=== PATIENT | female | born 1950 | race Hispanic/Latino ===

== ENCOUNTER 2019-05-10 09:28 | Inpatient (IN) | payer MEDICARE ==
--- NOTE | 2019-05-10 10:03 | Emergency Department Report ---
HPI - General Chief Complaint: Hypoglycemia Time Seen by Provider: 05/10/19 09:44 - HPI HPI: 69-year-old female presents to the emergency department via EMS from home with the complaint of hypoglycemia. The patient's blood sugar has been fluctuating over the past few days. Patient's , who is bedside, says that her blood sugar went down to 36 2 nights ago. EMS was called out to their home and she was given some IV glucose. Her blood sugar went up appropriately at that time so they decided they did not want transport to any emergency department. Yesterday morning the blood sugar was 87 upon waking and went up to about 140 but then was back down to about 70 prior to going to bed. The patient's says that the patient was difficult to arouse this morning and so blood sugar was rechecked and it was 36. EMS was called and the patient once again was given some glucose and the sugar went up into the high 50s but started coming back down again so they came in for further evaluation. At this time the patient is awake and alert without any significant complaints. She also has a history of hypertension and high cholesterol. The patient is on glipizide 10 mg once daily, metformin 1000 twice daily, and insulin 10 units twice daily. She has not taken any of her diabetes medications today and has not taken the insul in over the past 2 days. She follows with a nurse practitioner, Magaly Armendariz. ED Past Medical Hx - Past Medical History Previous Medical History?: Yes Hx Hypertension: Yes Hx Diabetes: Yes Additional medical history: HIGH CHOLESTEROL - Surgical History Past Surgical History?: Yes - Social History Smoking Status: Never Smoker Substance Use Type: None - Medications Home Medications: Home Medications Medication Instructions Recorded Confirmed Last Taken Type Metformin HCl [metFORMIN] 1,000 mg PO BID 05/10/19 05/10/19 2 Days Ago History ~05/08/19 Pravastatin [Pravachol] 80 mg PO QHS 05/10/19 05/10/19 1 Day Ago History ~05/09/19 Propranolol [Inderal] 20 mg PO BID 05/10/19 05/10/19 1 Day Ago History ~05/09/19 Quinapril HCl 40 mg PO QDAY 05/10/19 05/10/19 1 Day Ago History ~05/09/19 glipiZIDE [Glucotrol] 10 mg PO BID 05/10/19 05/10/19 2 Days Ago History ~05/08/19 hydroCHLOROthiazide [Hctz] 12.5 mg PO QDAY 05/10/19 05/10/19 1 Day Ago History ~05/09/19 ED Review of Systems ROS: Stated complaint: HYPOGLYCEMIA Other details as noted in HPI Comment: All other systems reviewed and negative Constitutional: denies: chills, fever Eyes: denies: eye pain, vision change ENT: denies: ear pain, throat pain Respiratory: denies: cough, shortness of breath Cardiovascular: denies: chest pain, palpitations Gastrointestinal: denies: abdominal pain, vomiting Genitourinary: denies: dysuria, discharge Musculoskeletal: denies: back pain, arthralgia Skin: denies: rash, lesions Neurological: other (unresponsive episode). denies: headache Physical Exam - Physical Exam Vital Signs: Vital Signs 05/10/19 05/10/19 09:46 09:52 Temperature 97.9 F 97.9 F Pulse Rate 74 73 Respiratory 17 18 Rate Blood Pressure 172/69 Blood Pressure 166/82 [Left] O2 Sat by Pulse 98 100 Oximetry Physical Exam: GENERAL: The patient is well-developed well-nourished. HEENT: Normocephalic. Atraumatic. Patient has moist mucous membranes. EYES: Extraocular motions are intact. NECK: Supple. Trachea is midline. CHEST/LUNGS: Clear to auscultation. There is no respiratory distress noted. HEART/CARDIOVASCULAR: Regular. There is no tachycardia. ABDOMEN: Abdomen is soft, nontender. Patient has normal bowel sounds. There is no abdominal distention. SKIN:Skin is warm and dry. . NEURO: The patient is awake, alert, and oriented. The patient is cooperative. The patient has no focal neurologic deficits. Normal speech. MUSCULOSKELETAL: There is no tenderness or deformity. There is no evidence of acute injury. ED Course Vital Signs 05/10/19 05/10/19 09:46 09:52 Temperature 97.9 F 97.9 F Pulse Rate 74 73 Respiratory 17 18 Rate Blood Pressure 172/69 Blood Pressure 166/82 [Left] O2 Sat by Pulse 98 100 Oximetry ED Medical Decision Making - Lab Data Result diagrams: 05/10/19 10:08 05/10/19 10:08 - Radiology Data Radiology results: report reviewed Bilateral renal ultrasound does not show any sonographic abnormalities. - Medical Decision Making This patient presents with a few days of some hypoglycemic episodes. Her blood sugar upon arrival here, after getting glucose from EMS, is about 140 from her serum blood draw. However the patient has acute renal failure with a GFR of about 15. I believe that the patient's sulfonylurea and the metformin are therefore not being filtered appropriately and are the reason for her recurrent hypoglycemic episodes. She has been given some IV fluid resuscitation. Bilateral renal ultrasound does not show any sonographic abnormalities. Her vital signs stable throughout her ED course thus far. A nephrology consult has been placed and the patient will be admitted to the hospital for further evaluation and treatment and was except for admission by the hospitalist, Dr. Duncan. - Differential Diagnosis hypoglycemia, malignancy, dehydration, prerenal azotemia Critical Care Time: No Critical care attestation.: If time is entered above; I have spent that time in minutes in the direct care of this critically ill patient, excluding procedure time. ED Disposition Clinical Impression: Multiple episodes of hypoglycemia, Hyperkalemia Acute renal failure Qualifiers: Acute renal failure type: unspecified Qualified Code(s): N17.9 - Acute kidney failure, unspecified UTI (urinary tract infection) Qualifiers: Urinary tract infection type: acute cystitis Hematuria presence: without hematuria Qualified Code(s): N30.00 - Acute cystitis without hematuria Hypertension Qualifiers: Hypertension type: essential hypertension Qualified Code(s): I10 - Essential (primary) hypertension Disposition: OP ADMIT IP TO THIS HOSP Is pt being admited?: Yes Condition: Serious Time of Disposition: 11:32
[2019-05-10 10:22] LABS: Basophils % (Auto) 0.3 % (0.0-1.8); Eosinophils # (Auto) 0.2 K/mm3 (0.0-0.4); Eosinophils % (Auto) 3.6 % (0.0-4.3); Hematocrit 34.9 % (30.3-42.9); Hemoglobin 12.3 gm/dl (10.1-14.3); Lymphocytes # (Auto) 1.5 K/mm3 (1.2-5.4); Lymphocytes % (Auto) 21.7 % (13.4-35.0); Mean Corpuscular HGB Conc 35 % (30-34); Mean Corpuscular Volume 88 fl (79-97); Monocytes # (Auto) 0.5 K/mm3 (0.0-0.8); Monocytes % (Auto) 6.8 % (0.0-7.3); Platelet Count 241 K/mm3 (140-440); Red Blood Count 3.97 M/mm3 (3.65-5.03); Red Cell Distribution Width 14.1 % (13.2-15.2)
[2019-05-10 10:47] LABS: Calcium 9.6 mg/dL (8.4-10.2)
[2019-05-10 10:48] LABS: Albumin 3.9 g/dL (3.9-5)
[2019-05-10] MEDS ORDERED: SODIUM CHLORIDE 0.9% 1000 ML 1,000 ML IV ONE (11:01)
[2019-05-10] MEDS ORDERED: SODIUM POLYSTYRENE 15 GM/60 ML ORAL LIQD PO ONE ×2 (11:01→17:45)
[2019-05-10 11:26] LABS: Bacteria,Urine 4+ /HPF (Negative); Bilirubin,Urine NEG (Negative); Blood,Urine SM (Negative); Color,Urine Yellow (Yellow); Mucus,Urine FEW /HPF; Protein,Urine <15 mg/dL mg/dL (Negative); Urobilinogen,Urine < 2.0 mg/dL (<2.0)
[2019-05-10] MEDS ORDERED: cefTRIAXone/NS 1 GM/50 ML 1 GM/50 ML BAG IV ONE (11:29)
--- NOTE | 2019-05-10 12:37 | Ultrasound Report ---
US renal BILAT INDICATION: Acute renal failure. COMPARISON: None . FINDINGS: Renal sonography suggests top normal renal cortical echogenicity. Grossly preserved renal c ontours. No hydronephrosis. RIGHT KIDNEY 11 x 5.7 x 5.2 cm with cortical thickness of 1.7 cm. LEFT KIDNEY estimated at 11.5 x 4.8 x 4.7 cm with cortical thickness of 1.6 cm. URINARY BLADDER appears within normal limits. IMPRESSION: No acute renal sonographic abnormality, as described. Thank you for the opportunity to participate in this patient's care. Signer Name: Ashli Petersen Signed: 05/10/2019 12:32 PM Workstation Name: [id number]
[2019-05-10] MEDS ORDERED: CALCIUM GLUCONATE 2,000 MG in SODIUM CHLORIDE 0.9% 100 ML IV ONE (22:26)
--- NOTE | 2019-05-10 22:28 | Event Note ---
Date: 05/10/19 See history and physical in the reports Hypoglycemia Acute kidney injury on CKD Type 2 diabetes
[2019-05-10] MEDS: HEPARIN 5,000 UNIT/1 ML VIAL SUB-Q SCH (23:38)
[2019-05-11 05:01] LABS: Basophils % (Auto) 0.4 % (0.0-1.8); Eosinophils # (Auto) 0.3 K/mm3 (0.0-0.4); Eosinophils % (Auto) 3.8 % (0.0-4.3); Hemoglobin 11.4 gm/dl (10.1-14.3); Lymphocytes # (Auto) 2.1 K/mm3 (1.2-5.4); Lymphocytes % (Auto) 28.9 % (13.4-35.0); Mean Corpuscular HGB Conc 36 % (30-34); Mean Corpuscular Volume 88 fl (79-97); Monocytes # (Auto) 0.7 K/mm3 (0.0-0.8); Monocytes % (Auto) 9.1 % (0.0-7.3); Platelet Count 239 K/mm3 (140-440); Red Blood Count 3.66 M/mm3 (3.65-5.03); Red Cell Distribution Width 14.3 % (13.2-15.2)
[2019-05-11 05:26] LABS: Albumin 3.8 g/dL (3.9-5); Calcium 9.4 mg/dL (8.4-10.2)
[2019-05-11] MEDS: INSULIN LISPRO 100 UNIT/ML SUB-Q SCH ×4 (09:34→23:03)
[2019-05-11] MEDS: HEPARIN 5,000 UNIT/1 ML VIAL SUB-Q SCH ×2 (09:37→23:04)
[2019-05-11] MEDS ORDERED: hydroCHLOROthiazide 12.5 MG CAP PO SCH (10:00)
[2019-05-11] MEDS ORDERED: LISINOPRIL 20 MG TAB PO SCH (10:00)
[2019-05-11] MEDS ORDERED: QUINAPRIL HCL 40 MG PO SCH (10:00)
[2019-05-11] MEDS: PROPRANOLOL 10 MG TAB PO SCH ×2 (10:09→23:05)
--- NOTE | 2019-05-11 12:39 | Consultation ---
History of Present Illness - Reason for Consult Consult date: 05/11/19 acute renal failure, chronic renal failure, hyperkalemia Requesting physician: TOMASA ANDRADE - History of Present Illness 69-year-old female presents to the emergency department via EMS from home with the complaint of hypoglycemia. The patient's blood sugar has been fluctuating over the past few days. Patient's , who is bedside, says that her blood sugar went down to 36 2 nights ago. EMS was called out to their home and she was given some IV glucose. Her blood sugar went up appropriately at that time so they decided they did not want transport to any emergency department. Yesterday morning the blood sugar was 87 upon waking and went up to about 140 but then was back down to about 70 prior to going to bed. The patient's says that the patient was difficult to arouse this morning and so blood sugar was rechecked and it was 36. EMS was called and the patient once again was given some glucose and the sugar went up into the high 50s but started coming back down again so they came in for further evaluation. At this time the patient is awake and alert without any significant complaints. She also has a history of hypertension and high cholesterol. The patient is on glipizide 10 mg once daily, metformin 1000 twice daily, and insulin 10 units twice daily. She has not taken any of her diabetes medications today and has not taken the insulin over the past 2 days. She follows with a nurse practitioner, Magaly Armendariz. - Past Medical History Previous Medical History?: Yes Hx Hypertension: Yes Hx Diabetes: Yes Additional medical history: HIGH CHOLESTEROL - Surgical History Past Surgical History?: Yes - Social History Smoking Status: Never Smoker Substance Use Type: None ROS: Stated complaint: HYPOGLYCEMIA Other details as noted in HPI Comment: All other systems reviewed and negative Constitutional: denies: chills, fever Eyes: denies: eye pain, vision change ENT: denies: ear pain, throat pain Respiratory: denies: cough, shortness of breath Cardiovascular: denies: chest pain, palpitations Gastrointestinal: denies: abdominal pain, vomiting Genitourinary: denies: dysuria, discharge Musculoskeletal: denies: back pain, arthralgia Skin: denies: rash, lesions Neurological: other (unresponsive episode). denies: headache Medications and Allergies Allergies Allergy/AdvReac Type Severity Reaction Status Date / Time Penicillins AdvReac Unknown Verified 05/10/19 13:03 Home Medications Medication Instructions Recorded Confirmed Last Taken Type Metformin HCl [metFORMIN] 1,000 mg PO BID 05/10/19 05/10/19 2 Days Ago History ~05/08/19 Pravastatin [Pravachol] 80 mg PO QHS 05/10/19 05/10/19 1 Day Ago History ~05/09/19 Propranolol [Inderal] 20 mg PO BID 05/10/19 05/10/19 1 Day Ago History ~05/09/19 Quinapril HCl 40 mg PO QDAY 05/10/19 05/10/19 1 Day Ago History ~05/09/19 glipiZIDE [Glucotrol] 10 mg PO BID 05/10/19 05/10/19 2 Days Ago History ~05/08/19 hydroCHLOROthiazide [Hctz] 12.5 mg PO QDAY 05/10/19 05/10/19 1 Day Ago History ~05/09/19 Active Meds: Active Medications Heparin Sodium (Porcine) (Heparin) 5,000 unit SUB-Q Q12HR [facility] Last Admin: 05/11/19 09:37 Dose: 5,000 unit Documented by: Hydrochlorothiazide (Hctz) 12.5 mg PO QDAY [facility] Last Admin: 05/11/19 09:32 Dose: 12.5 mg Documented by: Insulin Human Lispro (Humalog) 0 unit SUB-Q [facility]; Protocol Last Admin: 05/11/19 11:49 Dose: 2 unit Documented by: Lisinopril (Zestril) 20 mg PO QDAY [facility] Last Admin: 05/11/19 09:32 Dose: 20 mg Documented by: Propranolol HCl (Inderal) 20 mg PO BID [facility] Last Admin: 05/11/19 10:09 Dose: 20 mg Documented by: Exam - Vital Signs Vital signs: Vital Signs Pulse Resp 71 17 05/10/19 09:42 05/10/19 09:42 - Physical Exam Narrative exam: GENERAL: The patient is well-developed well-nourished. HEENT: Normocephalic. Atraumatic. Patient has moist mucous membranes. EYES: Extraocular motions are intact. NECK: Supple. Trachea is midline. CHEST/LUNGS: Clear to auscultation. There is no respiratory distress noted. HEART/CARDIOVASCULAR: Regular. There is no tachycardia. ABDOMEN: Abdomen is soft, nontender. Patient has normal bowel sounds. There is no abdominal distention. SKIN:Skin is warm and dry. . NEURO: The patient is awake, alert, and oriented. The patient is cooperative. The patient has no focal neurologic deficits. Normal speech. MUSCULOSKELETAL: There is no tenderness or deformity. There is no evidence of acute injury. Results - Lab Results 05/11/19 04:19 05/11/19 04:19 Most recent lab results Calcium 9.4 mg/dL (8.4-10.2) 05/11/19 04:19 Assessment and Plan Impression: * YU on likely ckd * UTI * hypoglycemia * volume depletion * HTN * hyperkalemia * TYpe 2 DM Plan: * cr stable, likely ckd due to HTN/DM * stop metformin, and trev inhibitor * gentle ivfs * stop diuretics * daily lytes, strict i/o * avoid nephrotoxins * k is better today * renal diet
[2019-05-11] MEDS: SODIUM CHLORIDE 0.45% 1000 ML 1,000 ML IV SCH (14:02)
--- NOTE | 2019-05-11 14:57 | History and Physical Report ---
CHIEF COMPLAINT: Low blood sugar. HISTORY OF PRESENT ILLNESS: A 69-year-old female on metformin and glipizide and decreasing kidney function, comes in for severely low blood glucose levels. The patient's is at bedside. Apparently, her blood sugar went down to 36 two nights ago. The patient was given IV glucose and the patient recovered. She did not seek any medical attention. Yesterday morning, blood pressure was 87 upon waking up, then went up back to 140 and then again back down to 170 prior to going to bed. This morning, the patient was difficult to arouse and it was 36. EMS was called and the patient was brought in. The patient has a history of hypertension and hyperlipidemia. Also, decreasing kidney function. The patient is lethargic, but improved with IV dextrose in the Emergency Room, back to near normal, but the patient has been having intermittently low blood glucose level since admission for observation status. PAST MEDICAL HISTORY: Hypertension, diabetes, hyperlipidemia, chronic kidney disease. PAST SURGICAL HISTORY: None. SOCIAL HISTORY: Does not smoke. FAMILY HISTORY: Hypertension. CURRENT MEDICATIONS: Metformin 1000 mg twice a day, pravastatin 80 mg p.o. daily, Inderal 20 mg twice a day, quinapril 40 mg p.o. daily, glipizide 10 mg p.o. b.i.d., hydrochlorothiazide 12.5 p.o. daily. REVIEW OF SYSTEMS: Significant for low blood glucose and decreased responsiveness. Otherwise, review of systems negative. PHYSICAL EXAMINATION: GENERAL: Elderly female, cooperative during examination, apparently with decreased responsiveness in the Emergency Room, now back to normal eating by herself. VITAL SIGNS: Blood pressure is 172/69, temperature is 97.9, pulse is 74, respiratory rate is 17, sats are 98%. HEENT: Unremarkable. Pupils equal and reactive. NECK: Supple, no lymphadenopathy, no thyromegaly. LUNGS: Clear to auscultation and percussion. Good air entry. CARDIOVASCULAR: S1, S2 heard. No gallop, no murmur, no rub. Apical impulse in left fifth intercostal space and midclavicular line. ABDOMEN: Soft and benign. No hepatosplenomegaly. No guarding, no rigidity. Hernial orifices are normal. EXTREMITIES: Good pedal pulses. No pedal edema. CENTRAL NERVOUS SYSTEM: Alert and oriented x 4, nonfocal exam. SKIN: Normal. LABORATORY DATA: Significant for normal CBC. Potassium is 5.6, BUN and creatinine is 48 and 3.4. The initial glucose was low 36. Later, it was 132, 106 and 221. Urine shows white cells of 17. Head CT was not done. Renal ultrasound shows no acute renal sonographic abnormality. ASSESSMENT AND PLAN: 1. Persistent hypoglycemia. The patient's metformin stopped. Also, ____ be cut down to half her usual level to 5 mg once a day. 2. Acute kidney injury. IV fluids. 3. Hypertension. Continue quinapril. Will stop the hydrochlorothiazide because of the increased creatinine. Also, continue propranolol. 4. Hyperlipidemia. Continue pravastatin. 5. Type 2 diabetes. Continue glipizide at 5 mg once a day and stop the metformin because of increased creatinine function. 6. Chronic kidney disease. Nephrology consulted. 7. Deep venous thrombosis prophylaxis, heparin 5000 q. 12. JOB# [id number] DEMI/ABHI DOBSON
[2019-05-11] MEDS ORDERED: oxyCODONE /ACETAMINOPHEN 5-325MG TAB PO PRN (22:25)
[2019-05-12] MEDS: SODIUM CHLORIDE 0.45% 1000 ML 1,000 ML IV SCH ×3 (04:32→22:01)
[2019-05-12 04:58] LABS: Basophils % (Auto) 0.4 % (0.0-1.8); Eosinophils # (Auto) 0.2 K/mm3 (0.0-0.4); Eosinophils % (Auto) 3.6 % (0.0-4.3); Hematocrit 28.4 % (30.3-42.9); Hemoglobin 10.4 gm/dl (10.1-14.3); Lymphocytes # (Auto) 2.1 K/mm3 (1.2-5.4); Lymphocytes % (Auto) 29.9 % (13.4-35.0); Mean Corpuscular HGB Conc 37 % (30-34); Mean Corpuscular Volume 86 fl (79-97); Monocytes # (Auto) 0.5 K/mm3 (0.0-0.8); Monocytes % (Auto) 7.3 % (0.0-7.3); Platelet Count 226 K/mm3 (140-440); Red Blood Count 3.29 M/mm3 (3.65-5.03)
[2019-05-12 07:05] LABS: Creatinine,Urine 37.5 mg/dL (0.1-20.0); Protein/Creatinine Ratio,Urine 0.29
[2019-05-12] MEDS: INSULIN LISPRO 100 UNIT/ML SUB-Q SCH ×4 (07:30→21:30)
[2019-05-12] MEDS: HEPARIN 5,000 UNIT/1 ML VIAL SUB-Q SCH ×2 (10:05→21:23)
[2019-05-12] MEDS: PROPRANOLOL 10 MG TAB PO SCH ×2 (10:05→21:25)
--- NOTE | 2019-05-12 10:29 | Progress Note ---
Assessment and Plan Impression: * YU on likely ckd * UTI * hypoglycemia * volume depletion * HTN * hyperkalemia * TYpe 2 DM Plan: * cr 3.7, likely ckd due to HTN/DM with uti and volume depletion * stopped metformin, and trev inhibitor * gentle ivfs, although havent been hanging * iv abx for uti, patient has not been receiving * stopped diuretics * daily lytes, strict i/o * avoid nephrotoxins * k is better today * renal diet Subjective Date of service: 05/12/19 Principal diagnosis: yu, on ?ckd Interval history: resting in bed today Objective - Exam Narrative Exam: GENERAL: The patient is well-developed well-nourished. HEENT: Normocephalic. Atraumatic. Patient has moist mucous membranes. EYES: Extraocular motions are intact. NECK: Supple. Trachea is midline. CHEST/LUNGS: Clear to auscultation. There is no respiratory distress noted. HEART/CARDIOVASCULAR: Regular. There is no tachycardia. ABDOMEN: Abdomen is soft, nontender. Patient has normal bowel sounds. There is no abdominal distention. SKIN:Skin is warm and dry. . NEURO: The patient is awake, alert, and oriented. The patient is cooperative. The patient has no focal neurologic deficits. Normal speech. MUSCULOSKELETAL: There is no tenderness or deformity. There is no evidence of acute injury. - Vital Signs Vital signs: Vital Signs - 12hr 05/11/19 05/11/19 05/12/19 23:07 23:17 05:42 Temperature 98.7 F 98.8 F Pulse Rate 67 65 Respiratory 18 18 20 Rate Blood Pressure 141/75 113/52 O2 Sat by Pulse 96 95 Oximetry - Lab 05/12/19 04:22 05/12/19 04:22 Most recent lab results Calcium 9.0 mg/dL (8.4-10.2) 05/12/19 04:22 Urine Creatinine 37.5 mg/dL (0.1-20.0) H 05/11/19 12:40 Urine Total Protein 11 mg/dL (5-11.8) 05/11/19 12:40 Medications & Allergies - Medications Allergies/Adverse Reactions: Allergies Penicillins Adverse Reaction (Verified 05/10/19 13:03) Unknown Home Medications: Home Medications Medication Instructions Recorded Confirmed Last Taken Type Metformin HCl [metFORMIN] 1,000 mg PO BID 05/10/19 05/10/19 2 Days Ago History ~05/08/19 Pravastatin [Pravachol] 80 mg PO QHS 05/10/19 05/10/19 1 Day Ago History ~05/09/19 Propranolol [Inderal] 20 mg PO BID 05/10/19 05/10/19 1 Day Ago History ~05/09/19 Quinapril HCl 40 mg PO QDAY 05/10/19 05/10/19 1 Day Ago History ~05/09/19 glipiZIDE [Glucotrol] 10 mg PO BID 05/10/19 05/10/19 2 Days Ago History ~05/08/19 hydroCHLOROthiazide [Hctz] 12.5 mg PO QDAY 05/10/19 05/10/19 1 Day Ago History ~05/09/19 Active Medications: Generic Name Dose Route Start Last Admin Trade Name Freq PRN Reason Stop Dose Admin Heparin Sodium (Porcine) 5,000 unit 05/10/19 22:30 05/12/19 10:05 Heparin SUB-Q 5,000 unit Q12HR [facility]AY Administration Sodium Chloride 1,000 mls @ 100 mls/hr 05/11/19 13:00 05/12/19 04:32 Nacl 0.45% 1000 Ml IV 100 mls/hr DIRECT SARAY Administration Levofloxacin/Dextrose 250 mg in 50 mls @ 50 mls/hr 05/12/19 11:00 Levaquin 250mg/50ml IV Q24HR [facility] Protocol Insulin Human Lispro 0 unit 05/11/19 07:30 05/12/19 07:30 Humalog SUB-Q Not Given ACHS [facility]AY Protocol Oxycodone/Acetaminophen 1 tab 05/11/19 22:25 05/11/19 23:07 Percocet 5/325 PO 1 tab Q6H PRN Administration Pain, Moderate (4-6) Propranolol HCl 20 mg 05/11/19 10:00 05/12/19 10:05 Inderal PO 20 mg BID [facility]AY Administration
--- NOTE | 2019-05-12 19:11 | Progress Note ---
Assessment and Plan - Patient Problems (1) Multiple episodes of hypoglycemia Current Visit: Yes Status: Acute Plan to address problem: Oral hypoglycemics stopped.Cont Lantus 10 units once daily in AM which she was taking at home twice a day (2) YU (acute kidney injury) Current Visit: Yes Status: Acute Plan to address problem: IV fluids for now Has underlying CKD Nephrology following. (3) UTI (urinary tract infection) Current Visit: Yes Status: Acute Qualifiers: Urinary tract infection type: acute cystitis Hematuria presence: without hematuria Qualified Code(s): N30.00 - Acute cystitis without hematuria Plan to address problem: On Levaquin (4) Hypertension Current Visit: Yes Status: Chronic Qualifiers: Hypertension type: essential hypertension Qualified Code(s): I10 - Essential (primary) hypertension Plan to address problem: Cont antihypertensives (5) Hyperkalemia Current Visit: Yes Status: Acute Plan to address problem: Resolved (6) HLD (hyperlipidemia) Current Visit: Yes Status: Chronic Qualifiers: Hyperlipidemia type: mixed hyperlipidemia Qualified Code(s): E78.2 - Mixed hyperlipidemia Plan to address problem: Cont statins (7) DVT prophylaxis Current Visit: Yes Status: Acute Plan to address problem: On Heparin and GI prophylaxis (8) Discharge planning issues Current Visit: Yes Status: Acute Plan to address problem: Maybe discharged only on Lantus if cleared by Nephrology. Subjective Date of service: 05/11/19 Principal diagnosis: yu, on ?ckd Interval history: 69-year-old female presents to the emergency department via EMS from home with the complaint of hypoglycemia. The patient's blood sugar has been fluctuating over the past few days. Patient's , who is bedside, says that her blood sugar went down to 36 2 nights ago. EMS was called out to their home and she was given some IV glucose. Her blood sugar went up appropriately at that time so they decided they did not want transport to any emergency department.Patient was having recurrrent hypoglycemic episodes --hence admission. Oral hypoglycemics nmetformin and Glyburide stopped.Patient had a creatinine of 3.7--hence hypoglycemic episodes. Doing better now. Objective - Constitutional Vitals: Vital Signs - 12hr 05/12/19 05/12/19 11:31 16:08 Temperature 98.4 F 98.2 F Pulse Rate 71 66 Respiratory 16 12 Rate Blood Pressure 121/55 161/76 O2 Sat by Pulse 95 97 Oximetry General appearance: Present: no acute distress, well-nourished - EENT Eyes: PERRL, EOM intact ENT: hearing intact, clear oral mucosa Ears: bilateral: normal - Neck Neck: supple, normal ROM - Respiratory Respiratory effort: normal Respiratory: bilateral: CTA - Breasts Breasts: normal - Cardiovascular Rhythm: regular Heart Sounds: Present: S1 & S2. Absent: gallop, rub Extremities: pulses intact, No edema, normal color, Full ROM - Gastrointestinal General gastrointestinal: Present: soft, non-tender, non-distended, normal bowel sounds - Genitourinary Female genitourinary: normal - Integumentary Integumentary: clear, warm, dry - Musculoskeletal Musculoskeletal: 1, strength equal bilaterally - Neurologic Neurologic: moves all extremities - Psychiatric Psychiatric: memory intact, appropriate mood/affect, intact judgment & insight - Labs CBC & Chem 7: 05/13/19 04:37 05/12/19 04:22 Labs: Abnormal lab results 05/11/19 05/11/19 05/12/19 Range/Units 12:40 22:54 04:22 RBC 3.29 L (3.65-5.03) M/mm3 Hct 28.4 L (30.3-42.9) % MCHC 37 H (30-34) % BUN (7-17) mg/dL Creatinine (0.7-1.2) mg/dL Glucose (65-100) mg/dL POC Glucose 238 H (70-105) Urine Creatinine 37.5 H (0.1-20.0) mg/dL 05/12/19 05/12/19 05/12/19 Range/Units 04:22 07:09 12:26 RBC (3.65-5.03) M/mm3 Hct (30.3-42.9) % MCHC (30-34) % BUN 41 H (7-17) mg/dL Creatinine 3.7 H (0.7-1.2) mg/dL Glucose 175 H (65-100) mg/dL POC Glucose 146 H 296 H (70-105) Urine Creatinine (0.1-20.0) mg/dL 05/12/19 Range/Units 17:03 RBC (3.65-5.03) M/mm3 Hct (30.3-42.9) % MCHC (30-34) % BUN (7-17) mg/dL Creatinine (0.7-1.2) mg/dL Glucose (65-100) mg/dL POC Glucose 350 H (70-105) Urine Creatinine (0.1-20.0) mg/dL
[2019-05-12] MEDS ORDERED: ONDANSETRON 4 MG/2 ML INJ IV PRN (20:40)
[2019-05-13 05:21] LABS: Basophils % (Auto) 0.3 % (0.0-1.8); Eosinophils # (Auto) 0.3 K/mm3 (0.0-0.4); Eosinophils % (Auto) 3.9 % (0.0-4.3); Hematocrit 28.7 % (30.3-42.9); Hemoglobin 10.2 gm/dl (10.1-14.3); Lymphocytes # (Auto) 1.8 K/mm3 (1.2-5.4); Lymphocytes % (Auto) 25.5 % (13.4-35.0); Mean Corpuscular HGB Conc 36 % (30-34); Mean Corpuscular Volume 87 fl (79-97); Monocytes # (Auto) 0.6 K/mm3 (0.0-0.8); Monocytes % (Auto) 8.4 % (0.0-7.3); Platelet Count 210 K/mm3 (140-440); Red Blood Count 3.28 M/mm3 (3.65-5.03)
[2019-05-13 05:45] LABS: Calcium 9.1 mg/dL (8.4-10.2)
--- NOTE | 2019-05-13 05:48 | Progress Note ---
Assessment and Plan - Patient Problems (1) Multiple episodes of hypoglycemia Current Visit: Yes Status: Acute Plan to address problem: Oral hypoglycemics stopped.Cont Lantus 10 units once daily in AM which she was taking at home twice a day (2) YU (acute kidney injury) Current Visit: Yes Status: Acute Plan to address problem: IV fluids for now Has underlying CKD Nephrology following. (3) UTI (urinary tract infection) Current Visit: Yes Status: Acute Qualifiers: Urinary tract infection type: acute cystitis Hematuria presence: without hematuria Qualified Code(s): N30.00 - Acute cystitis without hematuria Plan to address problem: On Levaquin (4) Hypertension Current Visit: Yes Status: Chronic Qualifiers: Hypertension type: essential hypertension Qualified Code(s): I10 - Essential (primary) hypertension Plan to address problem: Cont antihypertensives (5) Hyperkalemia Current Visit: Yes Status: Acute Plan to address problem: Resolved (6) HLD (hyperlipidemia) Current Visit: Yes Status: Chronic Qualifiers: Hyperlipidemia type: mixed hyperlipidemia Qualified Code(s): E78.2 - Mixed hyperlipidemia Plan to address problem: Cont statins (7) DVT prophylaxis Current Visit: Yes Status: Acute Plan to address problem: On Heparin and GI prophylaxis (8) Discharge planning issues Current Visit: Yes Status: Acute Plan to address problem: Maybe discharged only on Lantus if cleared by Nephrology. Subjective Date of service: 05/12/19 Principal diagnosis: yu, on ?ckd Interval history: 69-year-old female presents to the emergency department via EMS from home with the complaint of hypoglycemia. The patient's blood sugar has been fluctuating over the past few days. Patient's , who is bedside, says that her blood sugar went down to 36 2 nights ago. EMS was called out to their home and she was given some IV glucose. Her blood sugar went up appropriately at that time so they decided they did not want transport to any emergency department.Patient was having recurrrent hypoglycemic episodes --hence admission. Oral hypoglycemics nmetformin and Glyburide stopped.Patient had a creatinine of 3.7--hence hypoglycemic episodes. Doing better now. Objective - Constitutional Vitals: Vital Signs - 12hr 05/12/19 05/12/19 05/12/19 20:00 21:10 21:25 Temperature 98.2 F Pulse Rate 63 63 Respiratory 17 16 Rate Respiratory Rate [DENIES] Blood Pressure 162/77 162/77 O2 Sat by Pulse 98 Oximetry 05/12/19 05/13/19 22:00 04:27 Temperature 98.1 F Pulse Rate 61 Respiratory 16 Rate Respiratory 17 Rate [DENIES] Blood Pressure 154/75 O2 Sat by Pulse 97 Oximetry General appearance: Present: no acute distress, well-nourished - EENT Eyes: PERRL, EOM intact ENT: hearing intact, clear oral mucosa Ears: bilateral: normal - Neck Neck: supple, normal ROM - Respiratory Respiratory effort: normal Respiratory: bilateral: CTA - Breasts Breasts: normal - Cardiovascular Heart rate: 78 Rhythm: regular Heart Sounds: Present: S1 & S2. Absent: gallop, rub Extremities: pulses intact, No edema, normal color, Full ROM - Gastrointestinal General gastrointestinal: Present: soft, non-tender, non-distended, normal bowel sounds - Genitourinary Female genitourinary: normal - Integumentary Integumentary: clear, warm, dry - Musculoskeletal Musculoskeletal: 1, strength equal bilaterally - Neurologic Neurologic: moves all extremities - Psychiatric Psychiatric: memory intact, appropriate mood/affect, intact judgment & insight - Labs CBC & Chem 7: 05/13/19 04:37 05/13/19 04:37 Labs: Abnormal lab results 05/11/19 05/12/19 05/12/19 Range/Units 12:40 07:09 12:26 RBC (3.65-5.03) M/mm3 Hct (30.3-42.9) % MCHC (30-34) % [place] % (Auto) (0.0-7.3) % Sodium (137-145) mmol/L BUN (7-17) mg/dL Creatinine (0.7-1.2) mg/dL Glucose (65-100) mg/dL POC Glucose 146 H 296 H (70-105) Urine Creatinine 37.5 H (0.1-20.0) mg/dL 05/12/19 05/12/19 05/13/19 Range/Units 17:03 21:20 04:37 RBC 3.28 L (3.65-5.03) M/mm3 Hct 28.7 L (30.3-42.9) % MCHC 36 H (30-34) % [place] % (Auto) 8.4 H (0.0-7.3) % Sodium (137-145) mmol/L BUN (7-17) mg/dL Creatinine (0.7-1.2) mg/dL Glucose (65-100) mg/dL POC Glucose 350 H 220 H (70-105) Urine Creatinine (0.1-20.0) mg/dL 05/13/19 Range/Units 04:37 RBC (3.65-5.03) M/mm3 Hct (30.3-42.9) % MCHC (30-34) % [place] % (Auto) (0.0-7.3) % Sodium 135 L (137-145) mmol/L BUN 39 H (7-17) mg/dL Creatinine 3.8 H (0.7-1.2) mg/dL Glucose 171 H (65-100) mg/dL POC Glucose (70-105) Urine Creatinine (0.1-20.0) mg/dL
[2019-05-13] MEDS: INSULIN LISPRO 100 UNIT/ML SUB-Q SCH ×4 (09:05→21:22)
[2019-05-13] MEDS: INSULIN GLARGINE 100 UNITS/ML SUB-Q SCH (09:06)
[2019-05-13] MEDS: SODIUM CHLORIDE 0.9% 1000 ML 1,000 ML IV SCH ×3 (09:40→22:55)
[2019-05-13] MEDS: PROPRANOLOL 10 MG TAB PO SCH (09:41)
[2019-05-13] MEDS: HEPARIN 5,000 UNIT/1 ML VIAL SUB-Q SCH ×2 (09:41→21:21)
--- NOTE | 2019-05-13 14:07 | Progress Note ---
Assessment and Plan Assessment and plan: 69-year-old female presents to the emergency department via EMS from home with the complaint of hypoglycemia. The patient's blood sugar has been fluctuating over the past few days. Patient's , who is bedside, says that her blood sugar went down to 36 2 nights ago. EMS was called out to their home and she was given some IV glucose. Her blood sugar went up appropriately at that time so they decided they did not want transport to any emergency department.Patient was having recurrrent hypoglycemic episodes --hence admission. Oral hypoglycemics nmetformin and Glyburide stopped.Patient had a creatinine of 3.7--hence hypoglycemic episodes. Doing better now. (1) Multiple episodes of hypoglycemia Current Visit: Yes Status: Acute Plan to address problem: Oral hypoglycemics stopped. Cont Lantus 10 units once daily in AM which she was taking at home twice a day (2) YU (acute kidney injury) with vasomotor nephropathy Current Visit: Yes Status: Acute Plan to address problem: IV fluids for now Has underlying CKD Nephrology following. Creatinine is getting worse will monitor closely to ensure that we get to apply to before discharge. (3) UTI (urinary tract infection) Current Visit: Yes Status: Acute Qualifiers: Urinary tract infection type: acute cystitis Hematuria presence: without hematuria Qualified Code(s): N30.00 - Acute cystitis without hematuria Plan to address problem: On Levaquin (4) Hypertension Current Visit: Yes Status: Chronic Qualifiers: Hypertension type: essential hypertension Qualified Code(s): I10 - Essential (primary) hypertension Plan to address problem: Cont antihypertensives (5) Hyperkalemia Current Visit: Yes Status: Acute Plan to address problem: Resolved (6) HLD (hyperlipidemia) Current Visit: Yes Status: Chronic Qualifiers: Hyperlipidemia type: mixed hyperlipidemia Qualified Code(s): E78.2 - Mixed hyperlipidemia Plan to address problem: Cont statins (7) DVT prophylaxis Current Visit: Yes Status: Acute Plan to address problem: On Heparin and GI prophylaxis (8) Acute Metabolism Encephalopathy secondary Hypoglycemia now resolved Now resolved History Interval history: patient seen and examined, resting comfortable, tolerating PO intake Hospitalist Physical - Physical exam Narrative exam: General appearance: Present: no acute distress, well-nourished, Resting comfortable but concerned about renal functions - EENT Eyes: PERRL, EOM intact ENT: hearing intact, clear oral mucosa Ears: bilateral: normal - Neck Neck: supple, normal ROM - Respiratory Respiratory effort: normal Respiratory: bilateral: CTA - Breasts Breasts: normal - Cardiovascular Heart rate: 78 Rhythm: regular Heart Sounds: Present: S1 & S2. Absent: gallop, rub Extremities: pulses intact, No edema, normal color, Full ROM - Gastrointestinal General gastrointestinal: Present: soft, non-tender, non-distended, normal bowel sounds - Genitourinary Female genitourinary: normal - Integumentary Integumentary: clear, warm, dry - Musculoskeletal Musculoskeletal: 1, strength equal bilaterally - Neurologic Neurologic: moves all extremities - Psychiatric Psychiatric: memory intact, appropriate mood/affect, intact judgment & insight - Constitutional Vitals: Temp Pulse Resp BP Pulse Ox 98.1 F 63 16 157/73 97 05/13/19 04:27 05/13/19 09:41 05/13/19 04:27 05/13/19 09:41 05/13/19 04:27 General appearance: Present: no acute distress, well-nourished Results - Labs CBC & Chem 7: 05/14/19 06:43 05/14/19 06:43 Labs: Laboratory Last Values WBC 7.2 K/mm3 (4.5-11.0) 05/13/19 04:37 RBC 3.28 M/mm3 (3.65-5.03) L 05/13/19 04:37 Hgb 10.2 gm/dl (10.1-14.3) 05/13/19 04:37 Hct 28.7 % (30.3-42.9) L 05/13/19 04:37 MCV 87 fl (79-97) 05/13/19 04:37 MCH 31 pg (28-32) 05/13/19 04:37 MCHC 36 % (30-34) H 05/13/19 04:37 RDW 14.0 % (13.2-15.2) 05/13/19 04:37 Plt Count 210 K/mm3 (140-440) 05/13/19 04:37 Lymph % (Auto) 25.5 % (13.4-35.0) 05/13/19 04:37 [place] % (Auto) 8.4 % (0.0-7.3) H 05/13/19 04:37 Eos % (Auto) 3.9 % (0.0-4.3) 05/13/19 04:37 Baso % (Auto) 0.3 % (0.0-1.8) 05/13/19 04:37 Lymph # 1.8 K/mm3 (1.2-5.4) 05/13/19 04:37 [place] # 0.6 K/mm3 (0.0-0.8) 05/13/19 04:37 Eos # 0.3 K/mm3 (0.0-0.4) 05/13/19 04:37 Baso # 0.0 K/mm3 (0.0-0.1) 05/13/19 04:37 Seg Neutrophils % 61.9 % (40.0-70.0) 05/13/19 04:37 Seg Neutrophils # 4.5 K/mm3 (1.8-7.7) 05/13/19 04:37 VBG pH 7.307 (7.320-7.420) L 05/10/19 10:08 Sodium 135 mmol/L (137-145) L 05/13/19 04:37 Potassium 3.9 mmol/L (3.6-5.0) 05/13/19 04:37 Chloride 99.1 mmol/L (98-107) 05/13/19 04:37 Carbon Dioxide 22 mmol/L (22-30) 05/13/19 04:37 Anion Gap 18 mmol/L 05/13/19 04:37 BUN 39 mg/dL (7-17) H 05/13/19 04:37 Creatinine 3.8 mg/dL (0.7-1.2) H 05/13/19 04:37 Estimated GFR 12 ml/min 05/13/19 04:37 BUN/Creatinine Ratio 10 % 05/13/19 04:37 Glucose 171 mg/dL (65-100) H 05/13/19 04:37 POC Glucose 248 (70-105) H 05/13/19 11:54 Calcium 9.1 mg/dL (8.4-10.2) 05/13/19 04:37 Total Bilirubin 0.20 mg/dL (0.1-1.2) 05/11/19 04:19 AST 12 units/L (5-40) 05/11/19 04:19 ALT 5 units/L (7-56) L 05/11/19 04:19 Alkaline Phosphatase 60 units/L (35-129) 05/11/19 04:19 Total Protein 6.7 g/dL (6.3-8.2) 05/11/19 04:19 Albumin 3.8 g/dL (3.9-5) L 05/11/19 04:19 Albumin/Globulin Ratio 1.3 % 05/11/19 04:19 TSH 1.670 mlU/mL (0.270-4.200) 05/10/19 10:08 Urine Color Yellow (Yellow) 05/10/19 Unknown Urine Turbidity Cloudy (Clear) 05/10/19 Unknown Urine pH 5.0 (5.0-7.0) 05/10/19 Unknown Ur Specific [place] 1.008 (1.003-1.030) 05/10/19 Unknown Urine Protein <15 mg/dl mg/dL (Negative) 05/10/19 Unknown Urine Glucose (UA) Neg mg/dL (Negative) 05/10/19 Unknown Urine Ketones Neg mg/dL (Negative) 05/10/19 Unknown Urine Blood Sm (Negative) 05/10/19 Unknown Urine Nitrite Neg (Negative) 05/10/19 Unknown Urine Bilirubin Neg (Negative) 05/10/19 Unknown Urine Urobilinogen < 2.0 mg/dL (<2.0) 05/10/19 Unknown Ur Leukocyte Esterase Mod (Negative) 05/10/19 Unknown Urine WBC (Auto) 17.0 /HPF (0.0-6.0) H 05/10/19 Unknown Urine RBC (Auto) 8.0 /HPF (0.0-6.0) 05/10/19 Unknown U Epithel Cells (Auto) 27.0 /HPF (0-13.0) H 05/10/19 Unknown Urine Bacteria (Auto) 4+ /HPF (Negative) 05/10/19 Unknown Urine Mucus Few /HPF 05/10/19 Unknown Urine Eosinophils Rare (None Seen) 05/13/19 00:40 Urine Creatinine 37.5 mg/dL (0.1-20.0) H 05/11/19 12:40 Protein/Creatinin Ratio 0.29 05/11/19 12:40 Urine Total Protein 11 mg/dL (5-11.8) 05/11/19 12:40 Hep Bs Antigen Non-reactive (Negative) 05/11/19 15:33 Hepatitis C Antibody Non-reactive (NonReactive) 05/11/19 15:33 Active Medications - Current Medications Current Medications: Generic Name Dose Route Start Last Admin Trade Name Freq PRN Reason Stop Dose Admin Heparin Sodium (Porcine) 5,000 unit 05/10/19 22:30 05/13/19 09:41 Heparin SUB-Q 5,000 unit Q12HR SARAY Administration Levofloxacin/Dextrose 250 mg in 50 mls @ 50 mls/hr 05/12/19 11:00 05/12/19 11:00 Levaquin 250mg/50ml IV 50 mls/hr Q48HR SARAY Administration Protocol Sodium Chloride 1,000 mls @ 150 mls/hr 05/13/19 08:00 05/13/19 09:40 Nacl 0.9% 1000 Ml IV 150 mls/hr DIRECT SARAY Administration Insulin Glargine 10 units 05/13/19 08:00 05/13/19 09:06 Lantus SUB-Q 10 units QAM@0800 SARAY Administration Insulin Human Lispro 0 unit 05/11/19 07:30 05/13/19 13:02 Humalog SUB-Q 2 unit ACHS SARAY Administration Protocol Ondansetron HCl 4 mg 05/12/19 20:40 05/12/19 21:22 Zofran IV 4 mg Q4H PRN Administration Nausea And Vomiting Oxycodone/Acetaminophen 1 tab 05/11/19 22:25 05/11/19 23:07 Percocet 5/325 PO 1 tab Q6H PRN Administration Pain, Moderate (4-6) Propranolol HCl 20 mg 05/11/19 10:00 05/13/19 09:41 Inderal PO 20 mg BID SARAY Administration
--- NOTE | 2019-05-13 17:46 | Progress Note ---
Assessment and Plan - Patient Problems (1) YU (acute kidney injury) Current Visit: Yes Status: Acute Plan to address problem: acute kidney injury worsening baseline creatinine unknown I reviewed renal US right kidney 11x 5.7cm left kidney 11.5c x 4.8cm reviewed UA negative protein change fluids to normal saline avoid nephrotoxins (2) Multiple episodes of hypoglycemia Current Visit: Yes Status: Acute Plan to address problem: Hypoglycemia monitor glucose continue adjusting medications d/c hypoglycemia inducing meds. (3) Hypertension Current Visit: Yes Status: Chronic Qualifiers: Hypertension type: essential hypertension Qualified Code(s): I10 - Essential (primary) hypertension Plan to address problem: HTN: controlled continue curent medications. (4) Anemia Current Visit: Yes Status: Acute Plan to address problem: mild anemia Hb: 10g/dl monitor CBC. Subjective Principal diagnosis: yu, on ?ckd Interval history: 69 year old with medical history of DM admitte with hypoglycemia on metformin and ACEI Patient with worsening renal function. denies any shortness of breath , denies any fever. Objective - Vital Signs Vital signs: Vital Signs - 12hr 05/13/19 09:41 Pulse Rate 63 Blood Pressure 157/73 - General Appearance General appearance: well-developed, well-nourished EENT: ATNC, PERRL Neck: no JVD Respiratory: Present: Clear to Ascultation Cardiology: regular, S1S2 Gastrointestinal: normal, normoactive bowel sounds Integumentary: no rash Neurologic: alert and oriented x3, CN 3-12 intact Psychiatric: mood/affect appropriate, cooperative - Lab 05/13/19 04:37 05/13/19 04:37 Most recent lab results Calcium 9.1 mg/dL (8.4-10.2) 05/13/19 04:37 Urine Creatinine 37.5 mg/dL (0.1-20.0) H 05/11/19 12:40 Urine Total Protein 11 mg/dL (5-11.8) 05/11/19 12:40 Medications & Allergies - Medications Allergies/Adverse Reactions: Allergies Penicillins Adverse Reaction (Verified 05/10/19 13:03) Unknown Home Medications: Home Medications Medication Instructions Recorded Confirmed Last Taken Type Metformin HCl [metFORMIN] 1,000 mg PO BID 05/10/19 05/10/19 2 Days Ago History ~05/08/19 Pravastatin [Pravachol] 80 mg PO QHS 05/10/19 05/10/19 1 Day Ago History ~05/09/19 Propranolol [Inderal] 20 mg PO BID 05/10/19 05/10/19 1 Day Ago History ~05/09/19 Quinapril HCl 40 mg PO QDAY 05/10/19 05/10/19 1 Day Ago History ~05/09/19 glipiZIDE [Glucotrol] 10 mg PO BID 05/10/19 05/10/19 2 Days Ago History ~05/08/19 hydroCHLOROthiazide [Hctz] 12.5 mg PO QDAY 05/10/19 05/10/19 1 Day Ago History ~05/09/19 Active Medications: Generic Name Dose Route Start Last Admin Trade Name Freq PRN Reason Stop Dose Admin Heparin Sodium (Porcine) 5,000 unit 05/10/19 22:30 05/13/19 09:41 Heparin SUB-Q 5,000 unit Q12HR SARAY Administration Levofloxacin/Dextrose 250 mg in 50 mls @ 50 mls/hr 05/12/19 11:00 05/12/19 11:00 Levaquin 250mg/50ml IV 50 mls/hr Q48HR SARAY Administration Protocol Sodium Chloride 1,000 mls @ 150 mls/hr 05/13/19 08:00 05/13/19 16:21 Nacl 0.9% 1000 Ml IV 150 mls/hr DIRECT SARAY Administration Insulin Glargine 10 units 05/13/19 08:00 05/13/19 09:06 Lantus SUB-Q 10 units QAM@0800 SARAY Administration Insulin Human Lispro 0 unit 05/11/19 07:30 05/13/19 13:02 Humalog SUB-Q 2 unit ACHS SARAY Administration Protocol Ondansetron HCl 4 mg 05/12/19 20:40 05/12/19 21:22 Zofran IV 4 mg Q4H PRN Administration Nausea And Vomiting Oxycodone/Acetaminophen 1 tab 05/11/19 22:25 05/11/19 23:07 Percocet 5/325 PO 1 tab Q6H PRN Administration Pain, Moderate (4-6) Propranolol HCl 20 mg 05/11/19 10:00 05/13/19 09:41 Inderal PO 20 mg BID SARAY Administration
[2019-05-14] MEDS: PROPRANOLOL 10 MG TAB PO SCH ×3 (01:07→23:01)
[2019-05-14] MEDS: SODIUM CHLORIDE 0.9% 1000 ML 1,000 ML IV SCH (05:49)
[2019-05-14 07:09] LABS: Basophils % (Auto) 0.3 % (0.0-1.8); Eosinophils # (Auto) 0.2 K/mm3 (0.0-0.4); Eosinophils % (Auto) 3.6 % (0.0-4.3); Hematocrit 28.3 % (30.3-42.9); Lymphocytes # (Auto) 1.5 K/mm3 (1.2-5.4); Lymphocytes % (Auto) 22.9 % (13.4-35.0); Mean Corpuscular HGB Conc 35 % (30-34); Mean Corpuscular Volume 87 fl (79-97); Monocytes # (Auto) 0.5 K/mm3 (0.0-0.8); Monocytes % (Auto) 7.9 % (0.0-7.3); Platelet Count 218 K/mm3 (140-440); Red Blood Count 3.27 M/mm3 (3.65-5.03); Red Cell Distribution Width 13.8 % (13.2-15.2)
[2019-05-14 07:24] LABS: Calcium 8.6 mg/dL (8.4-10.2)
[2019-05-14] MEDS: INSULIN LISPRO 100 UNIT/ML SUB-Q SCH ×4 (10:14→23:09)
[2019-05-14] MEDS: INSULIN GLARGINE 100 UNITS/ML SUB-Q SCH (10:17)
[2019-05-14] MEDS: HEPARIN 5,000 UNIT/1 ML VIAL SUB-Q SCH ×2 (10:17→23:10)
[2019-05-14] MEDS: SODIUM BICARBONATE 75 MEQ in SODIUM CHLORIDE 0.45% 1000 ML 1,000 ML IV SCH ×2 (10:18→18:57)
[2019-05-14 15:00] LABS: Calcium 8.8 mg/dL (8.4-10.2)
--- NOTE | 2019-05-14 15:33 | Progress Note ---
Assessment and Plan Assessment and plan: 69-year-old female presents to the emergency department via EMS from home with the complaint of hypoglycemia. The patient's blood sugar has been fluctuating over the past few days. Patient's , who is bedside, says that her blood sugar went down to 36 2 nights ago. EMS was called out to their home and she was given some IV glucose. Her blood sugar went up appropriately at that time so they decided they did not want transport to any emergency department.Patient was having recurrrent hypoglycemic episodes --hence admission. Oral hypoglycemics nmetformin and Glyburide stopped.Patient had a creatinine of 3.7--hence hypoglycemic episodes. Doing better now. (1) Multiple episodes of hypoglycemia Current Visit: Yes Status: Acute Plan to address problem: Oral hypoglycemics stopped. Cont Lantus 10 units once daily in AM which she was taking at home twice a day (2) YU (acute kidney injury) with vasomotor nephropathy Current Visit: Yes Status: Acute Plan to address problem: IV fluids for now Has underlying CKD baseline renal function PER PCP office in March was 1.3 Nephrology following. Creatinine is getting worse will monitor closely to ensure that we get to apply to before discharge. (3) UTI (urinary tract infection) Current Visit: Yes Status: Acute Qualifiers: Urinary tract infection type: acute cystitis Hematuria presence: without hematuria Qualified Code(s): N30.00 - Acute cystitis without hematuria Plan to address problem: On Levaquin (4) Hypertension Current Visit: Yes Status: Chronic Qualifiers: Hypertension type: essential hypertension Qualified Code(s): I10 - Essential (primary) hypertension Plan to address problem: Cont antihypertensives (5) Hyperkalemia Current Visit: Yes Status: Acute Plan to address problem: Resolved (6) HLD (hyperlipidemia) Current Visit: Yes Status: Chronic Qualifiers: Hyperlipidemia type: mixed hyperlipidemia Qualified Code(s): E78.2 - Mixed hyperlipidemia Plan to address problem: Cont statins (7) DVT prophylaxis Current Visit: Yes Status: Acute Plan to address problem: On Heparin and GI prophylaxis (8) Acute Metabolism Encephalopathy secondary Hypoglycemia now resolved Now resolved History Interval history: patient seen and examined, resting comfortable, tolerating PO intake, ambulation Hospitalist Physical - Physical exam Narrative exam: General appearance: Present: no acute distress, well-nourished, Resting comfortable - EENT Eyes: PERRL, EOM intact ENT: hearing intact, clear oral mucosa Ears: bilateral: normal - Neck Neck: supple, normal ROM - Respiratory Respiratory effort: normal Respiratory: bilateral: CTA - Breasts Breasts: normal - Cardiovascular Heart rate: 78 Rhythm: regular Heart Sounds: Present: S1 & S2. Absent: gallop, rub Extremities: pulses intact, No edema, normal color, Full ROM - Gastrointestinal General gastrointestinal: Present: soft, non-tender, non-distended, normal bowel sounds - Genitourinary Female genitourinary: normal - Integumentary Integumentary: clear, warm, dry - Musculoskeletal Musculoskeletal: 1, strength equal bilaterally - Neurologic Neurologic: moves all extremities - Psychiatric Psychiatric: memory intact, appropriate mood/affect, intact judgment & insight - Constitutional Vitals: Temp Pulse Resp BP Pulse Ox 98.5 F 61 16 142/62 96 05/14/19 04:57 05/14/19 04:57 05/14/19 04:57 05/14/19 04:57 05/14/19 04:57 General appearance: Present: no acute distress, well-nourished Results - Labs CBC & Chem 7: 05/15/19 04:54 05/15/19 04:54 Labs: Laboratory Last Values WBC 6.7 K/mm3 (4.5-11.0) 05/14/19 06:43 RBC 3.27 M/mm3 (3.65-5.03) L 05/14/19 06:43 Hgb 10.0 gm/dl (10.1-14.3) L 05/14/19 06:43 Hct 28.3 % (30.3-42.9) L 05/14/19 06:43 MCV 87 fl (79-97) 05/14/19 06:43 MCH 31 pg (28-32) 05/14/19 06:43 MCHC 35 % (30-34) H 05/14/19 06:43 RDW 13.8 % (13.2-15.2) 05/14/19 06:43 Plt Count 218 K/mm3 (140-440) 05/14/19 06:43 Lymph % (Auto) 22.9 % (13.4-35.0) 05/14/19 06:43 [place] % (Auto) 7.9 % (0.0-7.3) H 05/14/19 06:43 Eos % (Auto) 3.6 % (0.0-4.3) 05/14/19 06:43 Baso % (Auto) 0.3 % (0.0-1.8) 05/14/19 06:43 Lymph # 1.5 K/mm3 (1.2-5.4) 05/14/19 06:43 [place] # 0.5 K/mm3 (0.0-0.8) 05/14/19 06:43 Eos # 0.2 K/mm3 (0.0-0.4) 05/14/19 06:43 Baso # 0.0 K/mm3 (0.0-0.1) 05/14/19 06:43 Seg Neutrophils % 65.3 % (40.0-70.0) 05/14/19 06:43 Seg Neutrophils # 4.3 K/mm3 (1.8-7.7) 05/14/19 06:43 VBG pH 7.307 (7.320-7.420) L 05/10/19 10:08 Sodium 138 mmol/L (137-145) 05/14/19 13:36 Potassium 3.8 mmol/L (3.6-5.0) 05/14/19 13:36 Chloride 104.0 mmol/L (98-107) 05/14/19 13:36 Carbon Dioxide 18 mmol/L (22-30) L 05/14/19 13:36 Anion Gap 20 mmol/L 05/14/19 13:36 BUN 33 mg/dL (7-17) H 05/14/19 13:36 Creatinine 3.6 mg/dL (0.7-1.2) H 05/14/19 13:36 Estimated GFR 13 ml/min 05/14/19 13:36 BUN/Creatinine Ratio 9 % 05/14/19 13:36 Glucose 225 mg/dL (65-100) H 05/14/19 13:36 POC Glucose 170 (70-105) H 05/13/19 21:25 Calcium 8.8 mg/dL (8.4-10.2) 05/14/19 13:36 Total Bilirubin 0.20 mg/dL (0.1-1.2) 05/11/19 04:19 AST 12 units/L (5-40) 05/11/19 04:19 ALT 5 units/L (7-56) L 05/11/19 04:19 Alkaline Phosphatase 60 units/L (35-129) 05/11/19 04:19 Total Protein 6.7 g/dL (6.3-8.2) 05/11/19 04:19 Albumin 3.8 g/dL (3.9-5) L 05/11/19 04:19 Albumin/Globulin Ratio 1.3 % 05/11/19 04:19 TSH 1.670 mlU/mL (0.270-4.200) 05/10/19 10:08 Urine Color Yellow (Yellow) 05/10/19 Unknown Urine Turbidity Cloudy (Clear) 05/10/19 Unknown Urine pH 5.0 (5.0-7.0) 05/10/19 Unknown Ur Specific [place] 1.008 (1.003-1.030) 05/10/19 Unknown Urine Protein <15 mg/dl mg/dL (Negative) 05/10/19 Unknown Urine Glucose (UA) Neg mg/dL (Negative) 05/10/19 Unknown Urine Ketones Neg mg/dL (Negative) 05/10/19 Unknown Urine Blood Sm (Negative) 05/10/19 Unknown Urine Nitrite Neg (Negative) 05/10/19 Unknown Urine Bilirubin Neg (Negative) 05/10/19 Unknown Urine Urobilinogen < 2.0 mg/dL (<2.0) 05/10/19 Unknown Ur Leukocyte Esterase Mod (Negative) 05/10/19 Unknown Urine WBC (Auto) 17.0 /HPF (0.0-6.0) H 05/10/19 Unknown Urine RBC (Auto) 8.0 /HPF (0.0-6.0) 05/10/19 Unknown U Epithel Cells (Auto) 27.0 /HPF (0-13.0) H 05/10/19 Unknown Urine Bacteria (Auto) 4+ /HPF (Negative) 05/10/19 Unknown Urine Mucus Few /HPF 05/10/19 Unknown Urine Eosinophils Rare (None Seen) 05/13/19 00:40 Urine Creatinine 37.5 mg/dL (0.1-20.0) H 05/11/19 12:40 Protein/Creatinin Ratio 0.29 05/11/19 12:40 Urine Total Protein 11 mg/dL (5-11.8) 05/11/19 12:40 Hep Bs Antigen Non-reactive (Negative) 05/11/19 15:33 Hepatitis C Antibody Non-reactive (NonReactive) 05/11/19 15:33 Active Medications - Current Medications Current Medications: Generic Name Dose Route Start Last Admin Trade Name Freq PRN Reason Stop Dose Admin Heparin Sodium (Porcine) 5,000 unit 05/10/19 22:30 05/14/19 10:17 Heparin SUB-Q 5,000 unit Q12HR SARAY Administration Levofloxacin/Dextrose 250 mg in 50 mls @ 50 mls/hr 05/12/19 11:00 05/14/19 10:17 Levaquin 250mg/50ml IV 50 mls/hr Q48HR SARAY Administration Protocol Sodium Bicarbonate 75 meq/ 1,075 mls @ 150 mls/hr 05/14/19 10:00 05/14/19 10:18 Sodium Chloride IV 150 mls/hr DIRECT SARAY Administration Insulin Glargine 10 units 05/13/19 08:00 05/14/19 10:17 Lantus SUB-Q 10 units QAM@0800 SARAY Administration Insulin Human Lispro 0 unit 05/11/19 07:30 05/14/19 12:34 Humalog SUB-Q 3 unit ACHS SARAY Administration Protocol Ondansetron HCl 4 mg 05/12/19 20:40 05/12/19 21:22 Zofran IV 4 mg Q4H PRN Administration Nausea And Vomiting Oxycodone/Acetaminophen 1 tab 05/11/19 22:25 05/11/19 23:07 Percocet 5/325 PO 1 tab Q6H PRN Administration Pain, Moderate (4-6) Propranolol HCl 20 mg 05/11/19 10:00 05/14/19 10:16 Inderal PO 20 mg BID SARAY Administration
--- NOTE | 2019-05-14 16:44 | Progress Note ---
Assessment and Plan - Patient Problems (1) YU (acute kidney injury) Current Visit: Yes Status: Acute Plan to address problem: acute kidney injury baseline creatinine 1.March from patient's primary care office Current creatinine is 3.6 mg/DL I attempted to call the patient's family care clinic to find the patient's baseline kidney function I reviewed renal US right kidney 11x 5.7cm left kidney 11.5cm x 4.8cm reviewed UA negative protein change fluids to normal saline avoid nephrotoxins (2) Multiple episodes of hypoglycemia Current Visit: Yes Status: Acute Plan to address problem: Hypoglycemia monitor glucose continue adjusting medications d/c hypoglycemia inducing meds. (3) Hypertension Current Visit: Yes Status: Chronic Qualifiers: Hypertension type: essential hypertension Qualified Code(s): I10 - E ssential (primary) hypertension Plan to address problem: HTN: controlled continue curent medications. (4) Anemia Current Visit: Yes Status: Acute Plan to address problem: mild anemia Hb: 10g/dl monitor CBC. Subjective Principal diagnosis: yu, on ?ckd Interval history: 69 year old with medical history of DM admitte with hypoglycemia on metformin and ACEI Patient seen today denies any shortness of breath , denies any fever. Reports good urine output Objective - Vital Signs Vital signs: Vital Signs - 12hr 05/14/19 04:57 Temperature 98.5 F Pulse Rate 61 Respiratory 16 Rate Blood Pressure 142/62 O2 Sat by Pulse 96 Oximetry - General Appearance General appearance: well-developed, well-nourished EENT: ATNC, PERRL Neck: no JVD Respiratory: Present: Clear to Ascultation Cardiology: regular, S1S2 Gastrointestinal: normal, normoactive bowel sounds Integumentary: no rash Neurologic: no focal deficit, CN 3-12 intact Psychiatric: mood/affect appropriate - Lab 05/14/19 06:43 05/14/19 13:36 Most recent lab results Calcium 8.8 mg/dL (8.4-10.2) 05/14/19 13:36 Urine Creatinine 37.5 mg/dL (0.1-20.0) H 05/11/19 12:40 Urine Total Protein 11 mg/dL (5-11.8) 05/11/19 12:40 - Imaging Chest x-ray: image reviewed (reviewed chest x-ray without pulmonary edema) Medications & Allergies - Medications Allergies/Adverse Reactions: Allergies Penicillins Adverse Reaction (Verified 05/10/19 13:03) Unknown Home Medications: Home Medications Medication Instructions Recorded Confirmed Last Taken Type Metformin HCl [metFORMIN] 1,000 mg PO BID 05/10/19 05/10/19 2 Days Ago History ~05/08/19 Pravastatin [Pravachol] 80 mg PO QHS 05/10/19 05/10/19 1 Day Ago History ~05/09/19 Propranolol [Inderal] 20 mg PO BID 05/10/19 05/10/19 1 Day Ago History ~05/09/19 Quinapril HCl 40 mg PO QDAY 05/10/19 05/10/19 1 Day Ago History ~05/09/19 glipiZIDE [Glucotrol] 10 mg PO BID 05/10/19 05/10/19 2 Days Ago History ~05/08/19 hydroCHLOROthiazide [Hctz] 12.5 mg PO QDAY 05/10/19 05/10/19 1 Day Ago History ~05/09/19 Active Medications: Generic Name Dose Route Start Last Admin Trade Name Freq PRN Reason Stop Dose Admin Heparin Sodium (Porcine) 5,000 unit 05/10/19 22:30 05/14/19 10:17 Heparin SUB-Q 5,000 unit Q12HR SARAY Administration Levofloxacin/Dextrose 250 mg in 50 mls @ 50 mls/hr 05/12/19 11:00 05/14/19 10:17 Levaquin 250mg/50ml IV 50 mls/hr Q48HR SARAY Administration Protocol Sodium Bicarbonate 75 meq/ 1,075 mls @ 150 mls/hr 05/14/19 10:00 05/14/19 1 0:18 Sodium Chloride IV 150 mls/hr DIRECT SARAY Administration Insulin Glargine 10 units 05/13/19 08:00 05/14/19 10:17 Lantus SUB-Q 10 units QAM@0800 SARAY Administration Insulin Human Lispro 0 unit 05/11/19 07:30 05/14/19 12:34 Humalog SUB-Q 3 unit ACHS SARAY Administration Protocol Ondansetron HCl 4 mg 05/12/19 20:40 05/12/19 21:22 Zofran IV 4 mg Q4H PRN Administration Nausea And Vomiting Oxycodone/Acetaminophen 1 tab 05/11/19 22:25 02/01/20 23:07 Percocet 5/325 PO 1 tab Q6H PRN Administration Pain, Moderate (4-6) Propranolol HCl 20 mg 05/11/19 10:00 05/14/19 10:16 Inderal PO 20 mg BID SARAY Administration
[2019-05-15] MEDS: SODIUM BICARBONATE 75 MEQ in SODIUM CHLORIDE 0.45% 1000 ML 1,000 ML IV SCH ×2 (01:07→09:54)
[2019-05-15 05:39] LABS: Basophils % (Auto) 0.3 % (0.0-1.8); Eosinophils # (Auto) 0.3 K/mm3 (0.0-0.4); Eosinophils % (Auto) 4.5 % (0.0-4.3); Hematocrit 29.5 % (30.3-42.9); Hemoglobin 10.5 gm/dl (10.1-14.3); Lymphocytes # (Auto) 1.5 K/mm3 (1.2-5.4); Lymphocytes % (Auto) 23.1 % (13.4-35.0); Mean Corpuscular HGB Conc 36 % (30-34); Mean Corpuscular Volume 87 fl (79-97); Monocytes # (Auto) 0.5 K/mm3 (0.0-0.8); Monocytes % (Auto) 8.4 % (0.0-7.3); Platelet Count 225 K/mm3 (140-440); Red Cell Distribution Width 14.2 % (13.2-15.2)
[2019-05-15 06:04] LABS: Calcium 8.9 mg/dL (8.4-10.2)
[2019-05-15] MEDS: INSULIN LISPRO 100 UNIT/ML SUB-Q SCH ×4 (09:56→22:27)
[2019-05-15] MEDS: hydrALAZINE 25 MG TAB PO SCH ×3 (09:56→22:06)
[2019-05-15] MEDS: INSULIN GLARGINE 100 UNITS/ML SUB-Q SCH (09:56)
[2019-05-15] MEDS: HEPARIN 5,000 UNIT/1 ML VIAL SUB-Q SCH ×2 (09:56→22:16)
[2019-05-15] MEDS: amLODIPine 10 MG TAB PO SCH (09:56)
[2019-05-15] MEDS: PROPRANOLOL 10 MG TAB PO SCH ×2 (09:56→22:06)
--- NOTE | 2019-05-15 13:41 | Progress Note ---
Assessment and Plan Assessment and plan: 69-year-old female presents to the emergency department via EMS from home with the complaint of hypoglycemia. The patient's blood sugar has been fluctuating over the past few days. Patient's , who is bedside, says that her blood sugar went down to 36 2 nights ago. EMS was called out to their home and she was given some IV glucose. Her blood sugar went up appropriately at that time so they decided they did not want transport to any emergency department.Patient was having recurrrent hypoglycemic episodes --hence admission. Oral hypoglycemics metformin and Glyburide stopped. Patient had a creatinine of 3.7--hence hypoglycemic episodes. Doing better now. * Renal function is still guarded, creatinine baseline in March just a few weeks ago was 1.3 patient was on metformin and also on lisinopril * On discussion with nephrology would like to see him much improved turnaround p rior to discharging the patient * She is clinically stable will give additional fluids today. (1) Multiple episodes of hypoglycemia Current Visit: Yes Status: Acute Plan to address problem: Oral hypoglycemics stopped. Cont Lantus 10 units once daily in AM which she was taking at home twice a day (2) YU (acute kidney injury) with vasomotor nephropathy Current Visit: Yes Status: Acute Plan to address problem: IV fluids for now Has underlying CKD baseline renal function PER PCP office in March was 1.3 Nephrology following. Creatinine is getting worse will monitor closely to ensure that we get to apply to before discharge. (3) UTI (urinary tract infection) Current Visit: Yes Status: Acute Qualifiers: Urinary tract infection type: acute cystitis Hematuria presence: without hematuria Qualified Code(s): N30.00 - Acute cystitis without hematuria Plan to address problem: On Levaquin (4) Hypertension Current Visit: Yes Status: Chronic Qualifiers: Hypertension type: essential hypertension Qualified Code(s): I10 - Essential (primary) hypertension Plan to address problem: Cont antihypertensives (5) Hyperkalemia now Hypokalmia Current Visit: Yes Status: Acute Plan to address problem: Resolved of hyperkalemia. Will give some potassium. (6) HLD (hyperlipidemia) Current Visit: Yes Status: Chronic Qualifiers: Hyperlipidemia type: mixed hyperlipidemia Qualified Code(s): E78.2 - Mixed hyperlipidemia Plan to address problem: Cont statins (7) DVT prophylaxis Current Visit: Yes Status: Acute Plan to address problem: On Heparin and GI prophylaxis (8) Acute Metabolism Encephalopathy secondary Hypoglycemia now resolved Now resolved Plan discussed with technical specialist and also patient History Interval history: patient seen and examined, resting comfortable, tolerating PO intake, ambulation Hospitalist Physical - Physical exam Narrative exam: General appearance: Present: no acute distress, well-nourished, Resting comfortable - EENT Eyes: PERRL, EOM intact ENT: hearing intact, clear oral mucosa Ears: bilateral: normal - Neck Neck: supple, normal ROM - Respiratory Respiratory effort: normal Respiratory: bilateral: CTA - Breasts Breasts: normal - Cardiovascular Heart rate: 78 Rhythm: regular Heart Sounds: Present: S1 & S2. Absent: gallop, rub Extremities: pulses intact, No edema, normal color, Full ROM - Gastrointestinal General gastrointestinal: Present: soft, non-tender, non-distended, normal bowel sounds - Genitourinary Female genitourinary: normal - Integumentary Integumentary: clear, warm, dry - Musculoskeletal Musculoskeletal: 1, strength equal bilaterally - Neurologic Neurologic: moves all extremities - Psychiatric Psychiatric: memory intact, appropriate mood/affect, intact judgment & insight - Constitutional Vitals: Temp Pulse Resp BP Pulse Ox 99.0 F 60 20 171/77 97 05/15/19 06:21 05/15/19 06:21 05/15/19 06:21 05/15/19 06:21 05/15/19 06:21 General appearance: Present: no acute distress, well-nourished Results - Labs CBC & Chem 7: 05/15/19 04:54 05/15/19 04:54 Labs: Laboratory Last Values WBC 6.5 K/mm3 (4.5-11.0) 05/15/19 04:54 RBC 3.40 M/mm3 (3.65-5.03) L 05/15/19 04:54 Hgb 10.5 gm/dl (10.1-14.3) 05/15/19 04:54 Hct 29.5 % (30.3-42.9) L 05/15/19 04:54 MCV 87 fl (79-97) 05/15/19 04:54 MCH 31 pg (28-32) 05/15/19 04:54 MCHC 36 % (30-34) H 05/15/19 04:54 RDW 14.2 % (13.2-15.2) 05/15/19 04:54 Plt Count 225 K/mm3 (140-440) 05/15/19 04:54 Lymph % (Auto) 23.1 % (13.4-35.0) 05/15/19 04:54 Frederick % (Auto) 8.4 % (0.0-7.3) H 05/15/19 04:54 Eos % (Auto) 4.5 % (0.0-4.3) H 05/15/19 04:54 Baso % (Auto) 0.3 % (0.0-1.8) 05/15/19 04:54 Lymph # 1.5 K/mm3 (1.2-5.4) 05/15/19 04:54 Frederick # 0.5 K/mm3 (0.0-0.8) 05/15/19 04:54 Eos # 0.3 K/mm3 (0.0-0.4) 05/15/19 04:54 Baso # 0.0 K/mm3 (0.0-0.1) 05/15/19 04:54 Seg Neutrophils % 63.7 % (40.0-70.0) 05/15/19 04:54 Seg Neutrophils # 4.1 K/mm3 (1.8-7.7) 05/15/19 04:54 VBG pH 7.307 (7.320-7.420) L 05/10/19 10:08 Sodium 145 mmol/L (137-145) D 05/15/19 04:54 Potassium 3.3 mmol/L (3.6-5.0) L 05/15/19 04:54 Chloride 106.3 mmol/L (98-107) 05/15/19 04:54 Carbon Dioxide 25 mmol/L (22-30) D 05/15/19 04:54 Anion Gap 17 mmol/L 05/15/19 04:54 BUN 32 mg/dL (7-17) H 05/15/19 04:54 Creatinine 3.5 mg/dL (0.7-1.2) H 05/15/19 04:54 Estimated GFR 13 ml/min 05/15/19 04:54 BUN/Creatinine Ratio 9 % 05/15/19 04:54 Glucose 89 mg/dL (65-100) 05/15/19 04:54 POC Glucose 166 (70-105) H 05/15/19 11:05 Calcium 8.9 mg/dL (8.4-10.2) 05/15/19 04:54 Total Bilirubin 0.20 mg/dL (0.1-1.2) 05/11/19 04:19 AST 12 units/L (5-40) 05/11/19 04:19 ALT 5 units/L (7-56) L 05/11/19 04:19 Alkaline Phosphatase 60 units/L (35-129) 05/11/19 04:19 Total Protein 6.7 g/dL (6.3-8.2) 05/11/19 04:19 Albumin 3.8 g/dL (3.9-5) L 05/11/19 04:19 Albumin/Globulin Ratio 1.3 % 05/11/19 04:19 TSH 1.670 mlU/mL (0.270-4.200) 05/10/19 10:08 Urine Color Yellow (Yellow) 05/10/19 Unknown Urine Turbidity Cloudy (Clear) 05/10/19 Unknown Urine pH 5.0 (5.0-7.0) 05/10/19 Unknown Ur Specific Makinen 1.008 (1.003-1.030) 05/10/19 Unknown Urine Protein <15 mg/dl mg/dL (Negative) 05/10/19 Unknown Urine Glucose (UA) Neg mg/dL (Negative) 05/10/19 Unknown Urine Ketones Neg mg/dL (Negative) 05/10/19 Unknown Urine Blood Sm (Negative) 05/10/19 Unknown Urine Nitrite Neg (Negative) 05/10/19 Unknown Urine Bilirubin Neg (Negative) 05/10/19 Unknown Urine Urobilinogen < 2.0 mg/dL (<2.0) 05/10/19 Unknown Ur Leukocyte Esterase Mod (Negative) 05/10/19 Unknown Urine WBC (Auto) 17.0 /HPF (0.0-6.0) H 05/10/19 Unknown Urine RBC (Auto) 8.0 /HPF (0.0-6.0) 05/10/19 Unknown U Epithel Cells (Auto) 27.0 /HPF (0-13.0) H 01/31/20 Unknown Urine Bacteria (Auto) 4+ /HPF (Negative) 05/10/19 Unknown Urine Mucus Few /HPF 05/10/19 Unknown Urine Eosinophils Rare (None Seen) 05/13/19 00:40 Urine Creatinine 37.5 mg/dL (0.1-20.0) H 05/11/19 12:40 Protein/Creatinin Ratio 0.29 05/11/19 12:40 Urine Total Protein 11 mg/dL (5-11.8) 05/11/19 12:40 Hep Bs Antigen Non-reactive (Negative) 05/11/19 15:33 Hepatitis C Antibody Non-reactive (NonReactive) 05/11/19 15:33 Active Medications - Current Medications Current Medications: Generic Name Dose Route Start Last Admin Trade Name Freq PRN Reason Stop Dose Admin Amlodipine Besylate 10 mg 05/15/19 10:00 05/15/19 09:56 Amlodipine PO 10 mg QDAY SARAY Administration Heparin Sodium (Porcine) 5,000 unit 05/10/19 22:30 05/15/19 09:56 Heparin SUB-Q 5,000 unit Q12HR SARAY Administration Hydralazine HCl 25 mg 05/15/19 08:00 05/15/19 09:56 Apresoline PO 25 mg Q8HR SARAY Administration Levofloxacin/Dextrose 250 mg in 50 mls @ 50 mls/hr 05/12/19 11:00 05/14/19 10:17 Levaquin 250mg/50ml IV 50 mls/hr Q48HR SARAY Administration Protocol Sodium Bicarbonate 75 meq/ 1,075 mls @ 150 mls/hr 05/14/19 10:00 05/15/19 09:54 Sodium Chloride IV 150 mls/hr DIRECT SARAY Administration Insulin Glargine 10 units 05/13/19 08:00 05/15/19 09:56 Lantus SUB-Q 10 units QAM@0800 SARAY Administration Insulin Human Lispro 0 unit 05/11/19 07:30 05/15/19 13:07 Humalog SUB-Q 1 unit ACHS SARAY Administration Protocol Ondansetron HCl 4 mg 05/12/19 20:40 05/12/19 21:22 Zofran IV 4 mg Q4H PRN Administration Nausea And Vomiting Oxycodone/Acetaminophen 1 tab 05/11/19 22:25 05/11/19 23:07 Percocet 5/325 PO 1 tab Q6H PRN Administration Pain, Moderate (4-6) Propranolol HCl 20 mg 05/11/19 10:00 05/15/19 09:56 Inderal PO 20 mg BID SARAY Administration
[2019-05-15] MEDS ORDERED: SODIUM CHLORIDE 0.9% 1000 ML 1,000 ML IV ONE (14:00)
--- NOTE | 2019-05-15 14:03 | XRay Report ---
CHEST 1 VIEW INDICATION: YU. COMPARISON: None. FINDINGS: Support devices: None. Heart: Within normal limits. Lungs/Pleura: No acute air space or interstitial disease. Additional findings: None. IMPRESSION: No acute abnormality. Signer Name: Hesham Hills MD Signed: 05/15/2019 1:59 PM Workstation Name: [id number]
[2019-05-15 15:01] LABS: Bilirubin,Urine NEG (Negative); Blood,Urine NEG (Negative); Color,Urine Colorless (Yellow); Protein,Urine <15 mg/dL mg/dL (Negative); Urobilinogen,Urine < 2.0 mg/dL (<2.0)
[2019-05-15] MEDS ORDERED: SENNOSIDES/DOCUSATE SODIUM 8.6/50 MG TAB PO PRN (15:45)
[2019-05-15] MEDS ORDERED: SODIUM CHLORIDE 0.9% 1000 ML 500 ML IV ONE (16:54)
--- NOTE | 2019-05-15 17:00 | Progress Note ---
Assessment and Plan - Patient Problems (1) YU (acute kidney injury) Current Visit: Yes Status: Acute Plan to address problem: acute kidney injury baseline creatinine 1.March from patient's primary care office Current creatinine is 3.5 mg/DL I attempted to call the patient's family care clinic to find the patient's baseline kidney function I reviewed renal US right kidney 11x 5.7cm left kidney 11.5cm x 4.8cm reviewed UA negative protein or hematuria We'll give additional fluid bolus Will obtain serologies Etiology of acute kidney injury likely secondary to volume depletion with acute tubular injury secondary to diabetes however she has not yet had significant improvement We'll continue aggressive hydration today Will await serology results If renal function worsens may need biopsy Continue normal saline avoid nephrotoxins (2) Multiple episodes of hypoglycemia Current Visit: Yes Status: Acute Plan to address problem: Hypoglycemia monitor glucose continue adjusting medications d/c hypoglycemia inducing meds. (3) Hypertension Current Visit: Yes Status: Chronic Qualifiers: Hypertension type: essential hypertension Qualified Code(s): I10 - Essential (primary) hypertension Plan to address problem: HTN: controlled continue curent medications. (4) Anemia Current Visit: Yes Status: Acute Plan to address problem: mild anemia Hb: 10g/dl monitor CBC. Subjective Principal diagnosis: yu, on ?ckd Interval history: 69 year old with medical history of DM admitted with hypoglycemia on metformin and ACEI Patient seen today denies any shortness of breath , denies any fever. Reports good urine output Chest x-ray is negative for fluid overload Objective - Vital Signs Vital signs: Vital Signs - 12hr 05/15/19 05/15/19 06:21 11:17 Temperature 99.0 F 97.4 F L Pulse Rate 60 63 Respiratory 20 20 Rate Blood Pressure 171/77 155/69 O2 Sat by Pulse 97 99 Oximetry - General Appearance General appearance: well-developed, well-nourished EENT: ATNC, PERRL Neck: no JVD Respiratory: Present: Clear to Ascultation Cardiology: regular, S1S2 Gastrointestinal: normal, normoactive bowel sounds Integumentary: no rash Neurologic: alert and oriented x3, CN 3-12 intact Psychiatric: mood/affect appropriate - Lab 05/15/19 04:54 05/15/19 04:54 Most recent lab results Calcium 8.9 mg/dL (8.4-10.2) 05/15/19 04:54 Urine Creatinine 37.5 mg/dL (0.1-20.0) H 05/11/19 12:40 Urine Total Protein 11 mg/dL (5-11.8) 05/11/19 12:40 - Imaging Chest x-ray: image reviewed Medications & Allergies - Medications Allergies/Adverse Reactions: Allergies Penicillins Adverse Reaction (Verified 05/10/19 13:03) Unknown Home Medications: Home Medications Medication Instructions Recorded Confirmed Last Taken Type Metformin HCl [metFORMIN] 1,000 mg PO BID 05/10/19 05/10/19 2 Days Ago History ~05/08/19 Pravastatin [Pravachol] 80 mg PO QHS 05/10/19 05/10/19 1 Day Ago History ~05/09/19 Propranolol [Inderal] 20 mg PO BID 05/10/19 05/10/19 1 Day Ago History ~05/09/19 Quinapril HCl 40 mg PO QDAY 05/10/19 05/10/19 1 Day Ago History ~05/09/19 glipiZIDE [Glucotrol] 10 mg PO BID 05/10/19 05/10/19 2 Days Ago History ~05/08/19 hydroCHLOROthiazide [Hctz] 12.5 mg PO QDAY 05/10/19 05/10/19 1 Day Ago History ~05/09/19 Active Medications: Generic Name Dose Route Start Last Admin Trade Name Freq PRN Reason Stop Dose Admin Amlodipine Besylate 10 mg 05/15/19 10:00 05/15/19 09:56 Amlodipine PO 10 mg QDAY SARAY Administration Bisacodyl 10 mg 05/15/19 15:45 Dulcolax [place] QDAY PRN Constipation Docusate Sodium 100 mg 05/15/19 22:00 Colace PO BID SARAY Heparin Sodium (Porcine) 5,000 unit 05/10/19 22:30 05/15/19 09:56 Heparin SUB-Q 5,000 unit Q12HR SARAY Administration Hydralazine HCl 25 mg 05/15/19 08:00 05/15/19 13:46 Apresoline PO 25 mg Q8HR SARAY Administration Levofloxacin/Dextrose 250 mg in 50 mls @ 50 mls/hr 05/12/19 11:00 05/14/19 10:17 Levaquin 250mg/50ml IV 50 mls/hr Q48HR SARAY Administration Protocol Sodium Chloride 1,000 mls @ 150 mls/hr 05/15/19 15:00 Nacl 0.9% 1000 Ml IV DIRECT SARAY Insulin Glargine 10 units 05/13/19 08:00 05/15/19 09:56 Lantus SUB-Q 10 units QAM@0800 SARAY Administration Insulin Human Lispro 0 unit 05/11/19 07:30 05/15/19 13:07 Humalog SUB-Q 1 unit ACHS SARAY Administration Protocol Ondansetron HCl 4 mg 05/12/19 20:40 05/12/19 21:22 Zofran IV 4 mg Q4H PRN Administration Nausea And Vomiting Oxycodone/Acetaminophen 1 tab 05/11/19 22:25 05/11/19 23:07 Percocet 5/325 PO 1 tab Q6H PRN Administration Pain, Moderate (4-6) Propranolol HCl 20 mg 05/11/19 10:00 05/15/19 09:56 Inderal PO 20 mg BID SARAY Administration Senna/Docusate Sodium 2 tab 05/15/19 15:45 Senokot S PO Q12H PRN Laxative Effect
[2019-05-15] MEDS: SODIUM CHLORIDE 0.9% 1000 ML 1,000 ML IV SCH (22:05)
[2019-05-15] MEDS: DOCUSATE SODIUM 100 MG/10 ML ORAL LIQD PO SCH (22:07)
[2019-05-16] MEDS: hydrALAZINE 25 MG TAB PO SCH ×3 (05:42→21:53)
[2019-05-16] MEDS: SODIUM CHLORIDE 0.9% 1000 ML 1,000 ML IV SCH (05:42)
[2019-05-16] MEDS: INSULIN LISPRO 100 UNIT/ML SUB-Q SCH ×3 (07:30→16:45)
[2019-05-16 07:43] LABS: Basophils % (Auto) 0.3 % (0.0-1.8); Eosinophils # (Auto) 0.2 K/mm3 (0.0-0.4); Eosinophils % (Auto) 3.7 % (0.0-4.3); Hematocrit 30.5 % (30.3-42.9); Hemoglobin 10.7 gm/dl (10.1-14.3); Lymphocytes # (Auto) 1.3 K/mm3 (1.2-5.4); Lymphocytes % (Auto) 21.8 % (13.4-35.0); Mean Corpuscular HGB Conc 35 % (30-34); Mean Corpuscular Volume 87 fl (79-97); Monocytes # (Auto) 0.5 K/mm3 (0.0-0.8); Monocytes % (Auto) 8.1 % (0.0-7.3); Platelet Count 215 K/mm3 (140-440); Red Cell Distribution Width 13.9 % (13.2-15.2)
[2019-05-16] MEDS: INSULIN GLARGINE 100 UNITS/ML SUB-Q SCH (08:00)
[2019-05-16 08:02] LABS: Calcium 8.6 mg/dL (8.4-10.2)
[2019-05-16 08:03] LABS: Calcium 8.5 mg/dL (8.4-10.2)
[2019-05-16] MEDS: amLODIPine 10 MG TAB PO SCH (10:46)
[2019-05-16] MEDS: PROPRANOLOL 10 MG TAB PO SCH ×2 (10:47→21:53)
[2019-05-16] MEDS: DOCUSATE SODIUM 100 MG/10 ML ORAL LIQD PO SCH ×2 (10:49→21:53)
[2019-05-16] MEDS: HEPARIN 5,000 UNIT/1 ML VIAL SUB-Q SCH ×2 (10:49→21:54)
--- NOTE | 2019-05-16 14:47 | Progress Note ---
Assessment and Plan Assessment and plan: 69-year-old female presents to the emergency department via EMS from home with the complaint of hypoglycemia. The patient's blood sugar has been fluctuating over the past few days. Patient's , who is bedside, says that her blood sugar went down to 36 2 nights ago. EMS was called out to their home and she was given some IV glucose. Her blood sugar went up appropriately at that time so they decided they did not want transport to any emergency department.Patient was having recurrrent hypoglycemic episodes --hence admission. Oral hypoglycemics metformin and Glyburide stopped. Patient had a creatinine of 3.7--hence hypoglycemic episodes. Doing better now. * Renal function is still guarded, creatinine baseline in March just a few weeks ago was 1.3 patient was on metformin and also on lisinopril * On discussion with nephrology would like to see him much improved turnaround p rior to discharging the patient * She is clinically stable will give additional fluids today. * Discussed extensively with pilot boat deckhand will continue to monitor in-house and will discharge once creatinine is below 2.8. I also discussed this with the patient this appears to be diabetic nephropathy mediated ATN but unfortunately takes quite some time to resolve. (1) Multiple episodes of hypoglycemia Current Visit: Yes Status: Acute Plan to address problem: Oral hypoglycemics stopped. Cont Lantus 10 units once daily in AM which she was taking at home twice a day (2) YU (acute kidney injury) with vasomotor nephropathy and diabetic nephropathy and underlying ATN/ Current Visit: Yes Status: Acute Plan to address problem: IV fluids for now Has underlying CKD baseline renal function PER PCP office in March was 1.3 Nephrology following. Creatinine is getting worse will monitor closely to ensure that we get to apply to before discharge. (3) UTI (urinary tract infection) Current Visit: Yes Status: Acute Qualifiers: Urinary tract infection type: acute cystitis Hematuria presence: without hematuria Qualified Code(s): N30.00 - Acute cystitis without hematuria Plan to address problem: On Levaquin (4) Hypertension Current Visit: Yes Status: Chronic Qualifiers: Hypertension type: essential hypertension Qualified Code(s): I10 - Essential (primary) hypertension Plan to address problem: Cont antihypertensives (5) Hyperkalemia now Hypokalmia Current Visit: Yes Status: Acute Plan to address problem: Resolved of hyperkalemia. Will give some potassium. (6) HLD (hyperlipidemia) Current Visit: Yes Status: Chronic Qualifiers: Hyperlipidemia type: mixed hyperlipidemia Qualified Code(s): E78.2 - Mixed hyperlipidemia Plan to address problem: Cont statins (7) DVT prophylaxis Current Visit: Yes Status: Acute Plan to address problem: On Heparin and GI prophylaxis (8) Acute Metabolism Encephalopathy secondary Hypoglycemia now resolved Now resolved Plan discussed with pilot boat deckhand and also patient History Interval history: patient seen and examined, resting comfortable, tolerating PO intake, ambulation. No adverse event reported to me overnight Hospitalist Physical - Physical exam Narrative exam: General appearance: Present: no acute distress, well-nourished, Resting comfortable - EENT Eyes: PERRL, EOM intact ENT: hearing intact, clear oral mucosa Ears: bilateral: normal - Neck Neck: supple, normal ROM - Respiratory Respiratory effort: normal Respiratory: bilateral: CTA - Breasts Breasts: normal - Cardiovascular Heart rate: 78 Rhythm: regular Heart Sounds: Present: S1 & S2. Absent: gallop, rub Extremities: pulses intact, No edema, normal color, Full ROM - Gastrointestinal General gastrointestinal: Present: soft, non-tender, non-distended, normal bowel sounds - Genitourinary Female genitourinary: normal - Integumentary Integumentary: clear, warm, dry - Musculoskeletal Musculoskeletal: 1, strength equal bilaterally - Neurologic Neurologic: moves all extremities - Psychiatric Psychiatric: memory intact, appropriate mood/affect, intact judgment & insight - Constitutional Vitals: Temp Pulse Resp BP Pulse Ox 98.0 F 73 16 138/73 96 05/16/19 11:17 05/16/19 11:17 05/16/19 11:17 05/16/19 11:17 05/16/19 11:17 General appearance: Present: no acute distress, well-nourished Results - Labs CBC & Chem 7: 05/16/19 07:24 05/16/19 07:24 Labs: Laboratory Last Values WBC 6.0 K/mm3 (4.5-11.0) 05/16/19 07:24 RBC 3.50 M/mm3 (3.65-5.03) L 05/16/19 07:24 Hgb 10.7 gm/dl (10.1-14.3) 05/16/19 07:24 Hct 30.5 % (30.3-42.9) 05/16/19 07:24 MCV 87 fl (79-97) 05/16/19 07:24 MCH 31 pg (28-32) 05/16/19 07:24 MCHC 35 % (30-34) H 05/16/19 07:24 RDW 13.9 % (13.2-15.2) 05/16/19 07:24 Plt Count 215 K/mm3 (140-440) 05/16/19 07:24 Lymph % (Auto) 21.8 % (13.4-35.0) 05/16/19 07:24 [place] % (Auto) 8.1 % (0.0-7.3) H 05/16/19 07:24 Eos % (Auto) 3.7 % (0.0-4.3) 05/16/19 07:24 Baso % (Auto) 0.3 % (0.0-1.8) 05/16/19 07:24 Lymph # 1.3 K/mm3 (1.2-5.4) 05/16/19 07:24 [place] # 0.5 K/mm3 (0.0-0.8) 05/16/19 07:24 Eos # 0.2 K/mm3 (0.0-0.4) 05/16/19 07:24 Baso # 0.0 K/mm3 (0.0-0.1) 05/16/19 07:24 Seg Neutrophils % 66.1 % (40.0-70.0) 05/16/19 07:24 Seg Neutrophils # 4.0 K/mm3 (1.8-7.7) 05/16/19 07:24 VBG pH 7.307 (7.320-7.420) L 05/10/19 10:08 Sodium 146 mmol/L (137-145) H 05/16/19 07:24 Sodium 147 mmol/L (137-145) H 05/16/19 07:24 Potassium 3.2 mmol/L (3.6-5.0) L 05/16/19 07:24 Potassium 3.2 mmol/L (3.6-5.0) L 05/16/19 07:24 Chloride 108.8 mmol/L (98-107) H 05/16/19 07:24 Chloride 109.6 mmol/L (98-107) H 05/16/19 07:24 Carbon Dioxide 20 mmol/L (22-30) L 05/16/19 07:24 Carbon Dioxide 20 mmol/L (22-30) L 05/16/19 07:24 Anion Gap 20 mmol/L 05/16/19 07:24 Anion Gap 21 mmol/L 05/16/19 07:24 BUN 30 mg/dL (7-17) H 05/16/19 07:24 BUN 30 mg/dL (7-17) H 05/16/19 07:24 Creatinine 3.2 mg/dL (0.7-1.2) H 05/16/19 07:24 Creatinine 3.2 mg/dL (0.7-1.2) H 05/16/19 07:24 Estimated GFR 14 ml/min 05/16/19 07:24 Estimated GFR 14 ml/min 05/16/19 07:24 BUN/Creatinine Ratio 9 % 05/16/19 07:24 BUN/Creatinine Ratio 9 % 05/16/19 07:24 Glucose 124 mg/dL (65-100) H 05/16/19 07:24 Glucose 126 mg/dL (65-100) H 05/16/19 07:24 POC Glucose 266 (70-105) H 05/16/19 11:19 Calcium 8.5 mg/dL (8.4-10.2) 05/16/19 07:24 Calcium 8.6 mg/dL (8.4-10.2) 05/16/19 07:24 Total Bilirubin 0.20 mg/dL (0.1-1.2) 05/11/19 04:19 AST 12 units/L (5-40) 05/11/19 04:19 ALT 5 units/L (7-56) L 05/11/19 04:19 Alkaline Phosphatase 60 units/L (35-129) 05/11/19 04:19 Total Protein 6.7 g/dL (6.3-8.2) 05/11/19 04:19 Albumin 3.8 g/dL (3.9-5) L 05/11/19 04:19 Albumin/Globulin Ratio 1.3 % 05/11/19 04:19 TSH 1.670 mlU/mL (0.270-4.200) 05/10/19 10:08 Urine Color Colorless (Yellow) 05/15/19 14:45 Urine Turbidity Clear (Clear) 05/15/19 14:45 Urine pH 7.0 (5.0-7.0) 05/15/19 14:45 Ur Specific [place] 1.004 (1.003-1.030) 05/15/19 14:45 Urine Protein <15 mg/dl mg/dL (Negative) 05/15/19 14:45 Urine Glucose (UA) 50 mg/dL (Negative) 05/15/19 14:45 Urine Ketones Neg mg/dL (Negative) 05/15/19 14:45 Urine Blood Neg (Negative) 05/15/19 14:45 Urine Nitrite Neg (Negative) 05/15/19 14:45 Urine Bilirubin Neg (Negative) 05/15/19 14:45 Urine Urobilinogen < 2.0 mg/dL (<2.0) 05/15/19 14:45 Ur Leukocyte Esterase Tr (Negative) 05/15/19 14:45 Urine WBC (Auto) 2.0 /HPF (0.0-6.0) 05/15/19 14:45 Urine RBC (Auto) 2.0 /HPF (0.0-6.0) 05/15/19 14:45 U Epithel Cells (Auto) 2.0 /HPF (0-13.0) 05/15/19 14:45 Urine Bacteria (Auto) 4+ /HPF (Negative) 05/10/19 Unknown Urine Mucus Few /HPF 05/10/19 Unknown Urine Eosinophils Rare (None Seen) 05/13/19 00:40 Urine Creatinine 37.5 mg/dL (0.1-20.0) H 05/11/19 12:40 Protein/Creatinin Ratio 0.29 05/11/19 12:40 Urine Total Protein 11 mg/dL (5-11.8) 05/11/19 12:40 Hep Bs Antigen Non-reactive (Negative) 05/11/19 15:33 Hepatitis C Antibody Non-reactive (NonReactive) 05/11/19 15:33 Active Medications - Current Medications Current Medications: Generic Name Dose Route Start Last Admin Trade Name Freq PRN Reason Stop Dose Admin Amlodipine Besylate 10 mg 05/15/19 10:00 05/16/19 10:46 Amlodipine PO 10 mg QDAY SARAY Administration Bisacodyl 10 mg 05/15/19 15:45 Dulcolax [place] QDAY PRN Constipation Docusate Sodium 100 mg 05/15/19 22:00 05/16/19 10:49 Colace PO 100 mg BID SARAY Administration Heparin Sodium (Porcine) 5,000 unit 05/10/19 22:30 05/16/19 10:49 Heparin SUB-Q 5,000 unit Q12HR SARAY Administration Hydralazine HCl 25 mg 05/15/19 08:00 05/16/19 05:42 Apresoline PO 25 mg Q8HR SARAY Administration Levofloxacin/Dextrose 250 mg in 50 mls @ 50 mls/hr 05/12/19 11:00 05/16/19 10:47 Levaquin 250mg/50ml IV 50 mls/hr Q48HR SARAY Administration Protocol Sodium Chloride 1,000 mls @ 150 mls/hr 05/15/19 15:00 05/16/19 05:42 Nacl 0.9% 1000 Ml IV 150 mls/hr DIRECT SARAY Administration Insulin Glargine 10 units 05/13/19 08:00 05/16/19 08:00 Lantus SUB-Q 10 units QAM@0800 SARAY Administration Insulin Human Lispro 0 unit 05/11/19 07:30 05/16/19 11:30 Humalog SUB-Q 3 unit ACHS SARAY Administration Protocol Ondansetron HCl 4 mg 05/12/19 20:40 05/12/19 21:22 Zofran IV 4 mg Q4H PRN Administration Nausea And Vomiting Oxycodone/Acetaminophen 1 tab 05/11/19 22:25 05/11/19 23:07 Percocet 5/325 PO 1 tab Q6H PRN Administration Pain, Moderate (4-6) Propranolol HCl 20 mg 05/11/19 10:00 05/16/19 10:47 Inderal PO 20 mg BID SARAY Administration Senna/Docusate Sodium 2 tab 05/15/19 15:45 05/15/19 17:01 Senokot S PO 2 tab Q12H PRN Administration Laxative Effect
--- NOTE | 2019-05-16 15:30 | Progress Note ---
Assessment and Plan - Patient Problems (1) YU (acute kidney injury) Current Visit: Yes Status: Acute Plan to address problem: acute kidney injury baseline creatinine 1.March from patient's primary care office Current creatinine is 3.2 mg/DL I attempted to call the patient's family care clinic to find the patient's baseline kidney function I reviewed renal US right kidney 11x 5.7cm left kidney 11.5cm x 4.8cm reviewed UA negative protein or hematuria received additional fluid bolus Will obtain serologies Etiology of acute kidney injury likely secondary to volume depletion with acute tubular injury secondary to diabetes however she has not yet had significant improvement We'll continue aggressive hydration today Will await serology results If renal function worsens may need biopsy Continue normal saline avoid nephrotoxins Patient anxious to be discharged, Discussed with primary team appears to have ATN in the setting of DM with prolonged recovery, serologies still pending. given baseline normal renal function would only discharge if creatinine improves more at least less than 2.8mg/dl She will need close follow up 1 week appt with Clinic on discharge. (2) Multiple episodes of hypoglycemia Current Visit: Yes Status: Acute Plan to address problem: Hypoglycemia monitor glucose continue adjusting medications d/c hypoglycemia inducing meds. (3) Hypertension Current Visit: Yes Status: Chronic Qualifiers: Hypertension type: essential hypertension Qualified Code(s): I10 - Essential (primary) hypertension Plan to address problem: HTN: controlled continue curent medications. (4) Anemia Current Visit: Yes Status: Acute Plan to address problem: mild anemia Hb: 10g/dl monitor CBC. Subjective Principal diagnosis: yu, on ?ckd Interval history: 69 year old with medical history of DM admitted with hypoglycemia on metformin and ACEI Patient seen today denies any shortness of breath , denies any fever. Reports good urine output c/o hand swelling. Chest x-ray is negative for fluid overload Objective - Vital Signs Vital signs: Vital Signs - 12hr 05/16/19 05/16/19 05/16/19 04:34 05:42 10:46 Temperature 97.5 F L Pulse Rate 70 70 70 Respiratory 16 Rate Blood Pressure 144/70 144/70 144/7 O2 Sat by Pulse 93 Oximetry 05/16/19 05/16/19 10:47 11:17 Temperature 98.0 F Pulse Rate 70 73 Respiratory 16 Rate Blood Pressure 144/70 138/73 O2 Sat by Pulse 96 Oximetry - General Appearance General appearance: well-developed, well-nourished EENT: ATNC, PERRL Neck: no JVD Respiratory: Present: Clear to Ascultation Cardiology: regular, S1S2 Gastrointestinal: normal Integumentary: no rash Neurologic: alert and oriented x3 Psychiatric: mood/affect appropriate - Lab 05/16/19 07:24 05/16/19 07:24 Most recent lab results Calcium 8.5 mg/dL (8.4-10.2) 05/16/19 07:24 Calcium 8.6 mg/dL (8.4-10.2) 05/16/19 07:24 Urine Creatinine 37.5 mg/dL (0.1-20.0) H 05/11/19 12:40 Urine Total Protein 11 mg/dL (5-11.8) 05/11/19 12:40 Medications & Allergies - Medications Allergies/Adverse Reactions: Allergies Penicillins Adverse Reaction (Verified 05/10/19 13:03) Unknown Home Medications: Home Medications Medication Instructions Recorded Confirmed Last Taken Type Metformin HCl [metFORMIN] 1,000 mg PO BID 05/10/19 05/10/19 2 Days Ago History ~05/08/19 Pravastatin [Pravachol] 80 mg PO QHS 05/10/19 05/10/19 1 Day Ago History ~05/09/19 Propranolol [Inderal] 20 mg PO BID 05/10/19 05/10/19 1 Day Ago History ~05/09/19 Quinapril HCl 40 mg PO QDAY 05/10/19 05/10/19 1 Day Ago History ~05/09/19 glipiZIDE [Glucotrol] 10 mg PO BID 05/10/19 05/10/19 2 Days Ago History ~05/08/19 hydroCHLOROthiazide [Hctz] 12.5 mg PO QDAY 05/10/19 05/10/19 1 Day Ago History ~05/09/19 Active Medications: Generic Name Dose Route Start Last Admin Trade Name Freq PRN Reason Stop Dose Admin Amlodipine Besylate 10 mg 05/15/19 10:00 05/16/19 10:46 Amlodipine PO 10 mg QDAY SARAY Administration Bisacodyl 10 mg 05/15/19 15:45 Dulcolax [place] QDAY PRN Constipation Docusate Sodium 100 mg 05/15/19 22:00 05/16/19 10:49 Colace PO 100 mg BID SARAY Administration Heparin Sodium (Porcine) 5,000 unit 05/10/19 22:30 05/16/19 10:49 Heparin SUB-Q 5,000 unit Q12HR SARAY Administration Hydralazine HCl 25 mg 05/15/19 08:00 05/16/19 05:42 Apresoline PO 25 mg Q8HR SARAY Administration Levofloxacin/Dextrose 250 mg in 50 mls @ 50 mls/hr 05/12/19 11:00 05/16/19 10:47 Levaquin 250mg/50ml IV 50 mls/hr Q48HR SARAY Administration Protocol Sodium Chloride 1,000 mls @ 150 mls/hr 05/15/19 15:00 05/16/19 05:42 Nacl 0.9% 1000 Ml IV 150 mls/hr DIRECT SARAY Administration Insulin Glargine 10 units 05/13/19 08:00 05/16/19 08:00 Lantus SUB-Q 10 units QAM@0800 SARAY Administration Insulin Human Lispro 0 unit 05/11/19 07:30 05/16/19 11:30 Humalog SUB-Q 3 unit ACHS SARAY Administration Protocol Ondansetron HCl 4 mg 05/12/19 20:40 05/12/19 21:22 Zofran IV 4 mg Q4H PRN Administration Nausea And Vomiting Oxycodone/Acetaminophen 1 tab 05/11/19 22:25 05/11/19 23:07 Percocet 5/325 PO 1 tab Q6H PRN Administration Pain, Moderate (4-6) Propranolol HCl 20 mg 05/11/19 10:00 05/16/19 10:47 Inderal PO 20 mg BID SARAY Administration Senna/Docusate Sodium 2 tab 05/15/19 15:45 05/15/19 17:01 Senokot S PO 2 tab Q12H PRN Administration Laxative Effect
[2019-05-16] MEDS ORDERED: POTASSIUM CHLORIDE ER 20 MEQ TAB PO SCH (15:31)
[2019-05-16] MEDS ORDERED: DEXTROSE 5% IN WATER 1,000 ML with SODIUM BICARBONATE 75 MEQ IV SCH (16:00)
[2019-05-17] MEDS: INSULIN LISPRO 100 UNIT/ML SUB-Q SCH ×5 (00:01→22:42)
[2019-05-17] MEDS ORDERED: SODIUM BICARBONATE 75 MEQ in DEXTROSE 5% IN WATER 1,000 ML IV SCH (05:00)
[2019-05-17] MEDS: hydrALAZINE 25 MG TAB PO SCH ×3 (05:51→21:20)
[2019-05-17 06:22] LABS: Basophils % (Auto) 0.5 % (0.0-1.8); Eosinophils # (Auto) 0.2 K/mm3 (0.0-0.4); Eosinophils % (Auto) 4.2 % (0.0-4.3); Hematocrit 30.1 % (30.3-42.9); Hemoglobin 10.8 gm/dl (10.1-14.3); Lymphocytes # (Auto) 1.3 K/mm3 (1.2-5.4); Lymphocytes % (Auto) 22.7 % (13.4-35.0); Mean Corpuscular HGB Conc 36 % (30-34); Mean Corpuscular Volume 88 fl (79-97); Monocytes # (Auto) 0.5 K/mm3 (0.0-0.8); Monocytes % (Auto) 8.4 % (0.0-7.3); Platelet Count 216 K/mm3 (140-440); Red Blood Count 3.44 M/mm3 (3.65-5.03)
[2019-05-17 06:43] LABS: Calcium 8.8 mg/dL (8.4-10.2)
[2019-05-17] MEDS: HEPARIN 5,000 UNIT/1 ML VIAL SUB-Q SCH ×2 (10:28→21:21)
[2019-05-17] MEDS: DOCUSATE SODIUM 100 MG/10 ML ORAL LIQD PO SCH ×2 (10:28→21:14)
[2019-05-17] MEDS: INSULIN GLARGINE 100 UNITS/ML SUB-Q SCH (10:28)
[2019-05-17] MEDS: PROPRANOLOL 10 MG TAB PO SCH ×2 (10:29→21:14)
[2019-05-17] MEDS: amLODIPine 10 MG TAB PO SCH (10:31)
[2019-05-17] MEDS ORDERED: POTASSIUM CHLORIDE ER 20 MEQ TAB PO ONE (12:57)
--- NOTE | 2019-05-17 12:58 | Progress Note ---
Assessment and Plan Assessment and plan: 69-year-old female presents to the emergency department via EMS from home with the complaint of hypoglycemia. The patient's blood sugar has been fluctuating over the past few days. Patient's , who is bedside, says that her blood sugar went down to 36 2 nights ago. EMS was called out to their home and she was given some IV glucose. Her blood sugar went up appropriately at that time so they decided they did not want transport to any emergency department.Patient was having recurrrent hypoglycemic episodes --hence admission. Oral hypoglycemics metformin and Glyburide stopped. Patient had a creatinine of 3.7--hence hypoglycemic episodes. Doing better now. * Renal function is still guarded, creatinine baseline in March just a few weeks ago was 1.3 patient was on metformin and also on lisinopril * Creatinine remains 3.2. Discussed plan of care again with patient and who is at the bedside today. * On discussion with nephrology would like to see him much improved turnaround prior to discharging the patient * She is clinically stable will give additional fluids today. * Discussed extensively with racking technician will continue to monitor in-house and will discharge once creatinine is below 2.8. I also discussed this with the patient this appears to be diabetic nephropathy mediated ATN but unfortunately takes quite some time to resolve. (1) Multiple episodes of hypoglycemia Current Visit: Yes Status: Acute Plan to address problem: Oral hypoglycemics stopped. Cont Lantus 10 units once daily in AM which she was taking at home twice a day (2) YU (acute kidney injury) with vasomotor nephropathy and diabetic nephropathy and underlying ATN/ Current Visit: Yes Status: Acute Plan to address problem: IV fluids for now Has underlying CKD baseline renal function PER PCP office in March was 1.3 Nephrology following. Creatinine is getting worse will monitor closely to ensure that we get to apply to before discharge. (3) UTI (urinary tract infection) Current Visit: Yes Status: Acute Qualifiers: Urinary tract infection type: acute cystitis Hematuria presence: without hematuria Qualified Code(s): N30.00 - Acute cystitis without hematuria Plan to address problem: On Levaquin (4) Hypertension Current Visit: Yes Status: Chronic Qualifiers: Hypertension type: essential hypertension Qualified Code(s): I10 - Essential (primary) hypertension Plan to address problem: Cont antihypertensives (5) Hyperkalemia now Hypokalmia Current Visit: Yes Status: Acute Plan to address problem: Resolved of hyperkalemia. Give additional replacement of potassium. (6) HLD (hyperlipidemia) Current Visit: Yes Status: Chronic Qualifiers: Hyperlipidemia type: mixed hyperlipidemia Qualified Code(s): E78.2 - Mixed hyperlipidemia Plan to address problem: Cont statins (7) DVT prophylaxis Current Visit: Yes Status: Acute Plan to address problem: On Heparin and GI prophylaxis (8) Acute Metabolism Encephalopathy secondary Hypoglycemia now resolved Now resolved Plan discussed with racking technician and also patient History Interval history: patient seen and examined, resting comfortable, tolerating PO intake, ambulation. No adverse event reported to me overnight Hospitalist Physical - Physical exam Narrative exam: General appearance: Present: no acute distress, well-nourished, Resting comfortable. No clinical change - EENT Eyes: PERRL, EOM intact ENT: hearing intact, clear oral mucosa Ears: bilateral: normal - Neck Neck: supple, normal ROM - Respiratory Respiratory effort: normal Respiratory: bilateral: CTA - Breasts Breasts: normal - Cardiovascular Heart rate: 78 Rhythm: regular Heart Sounds: Present: S1 & S2. Absent: gallop, rub Extremities: pulses intact, No edema, normal color, Full ROM - Gastrointestinal General gastrointestinal: Present: soft, non-tender, non-distended, normal bowel sounds - Genitourinary Female genitourinary: normal - Integumentary Integumentary: clear, warm, dry - Musculoskeletal Musculoskeletal: 1, strength equal bilaterally - Neurologic Neurologic: moves all extremities - Psychiatric Psychiatric: memory intact, appropriate mood/affect, intact judgment & insight - Constitutional Vitals: Temp Pulse Resp BP Pulse Ox 97.6 F 68 16 121/69 96 05/17/19 01:01 05/17/19 01:01 05/17/19 01:01 05/17/19 10:31 05/17/19 01:01 General appearance: Present: no acute distress, well-nourished Results - Labs CBC & Chem 7: 05/17/19 05:29 05/17/19 05:29 Labs: Laboratory Last Values WBC 5.7 K/mm3 (4.5-11.0) 05/17/19 05:29 RBC 3.44 M/mm3 (3.65-5.03) L 05/17/19 05:29 Hgb 10.8 gm/dl (10.1-14.3) 05/17/19 05:29 Hct 30.1 % (30.3-42.9) L 05/17/19 05:29 MCV 88 fl (79-97) 05/17/19 05:29 MCH 31 pg (28-32) 05/17/19 05:29 MCHC 36 % (30-34) H 05/17/19 05:29 RDW 14.0 % (13.2-15.2) 05/17/19 05:29 Plt Count 216 K/mm3 (140-440) 05/17/19 05:29 Lymph % (Auto) 22.7 % (13.4-35.0) 05/17/19 05:29 [place] % (Auto) 8.4 % (0.0-7.3) H 05/17/19 05:29 Eos % (Auto) 4.2 % (0.0-4.3) 05/17/19 05:29 Baso % (Auto) 0.5 % (0.0-1.8) 05/17/19 05:29 Lymph # 1.3 K/mm3 (1.2-5.4) 05/17/19 05:29 [place] # 0.5 K/mm3 (0.0-0.8) 05/17/19 05:29 Eos # 0.2 K/mm3 (0.0-0.4) 05/17/19 05:29 Baso # 0.0 K/mm3 (0.0-0.1) 05/17/19 05:29 Seg Neutrophils % 64.2 % (40.0-70.0) 05/17/19 05:29 Seg Neutrophils # 3.6 K/mm3 (1.8-7.7) 05/17/19 05:29 VBG pH 7.307 (7.320-7.420) L 05/10/19 10:08 Sodium 143 mmol/L (137-145) 05/17/19 05:29 Potassium 3.1 mmol/L (3.6-5.0) L 05/17/19 05:29 Chloride 104.3 mmol/L (98-107) 05/17/19 05:29 Carbon Dioxide 24 mmol/L (22-30) 05/17/19 05:29 Anion Gap 18 mmol/L 05/17/19 05:29 BUN 25 mg/dL (7-17) H 05/17/19 05:29 Creatinine 3.2 mg/dL (0.7-1.2) H 05/17/19 05:29 Estimated GFR 14 ml/min 05/17/19 05:29 BUN/Creatinine Ratio 8 % 05/17/19 05:29 Glucose 205 mg/dL (65-100) H 05/17/19 05:29 POC Glucose 324 (70-105) H 05/17/19 11:31 Calcium 8.8 mg/dL (8.4-10.2) 05/17/19 05:29 Total Bilirubin 0.20 mg/dL (0.1-1.2) 05/11/19 04:19 AST 12 units/L (5-40) 05/11/19 04:19 ALT 5 units/L (7-56) L 05/11/19 04:19 Alkaline Phosphatase 60 units/L (35-129) 05/11/19 04:19 Total Protein 6.7 g/dL (6.3-8.2) 05/11/19 04:19 Albumin 3.8 g/dL (3.9-5) L 05/11/19 04:19 Albumin/Globulin Ratio 1.3 % 05/11/19 04:19 TSH 1.670 mlU/mL (0.270-4.200) 05/10/19 10:08 Urine Color Colorless (Yellow) 05/15/19 14:45 Urine Turbidity Clear (Clear) 05/15/19 14:45 Urine pH 7.0 (5.0-7.0) 05/15/19 14:45 Ur Specific [place] 1.004 (1.003-1.030) 05/15/19 14:45 Urine Protein <15 mg/dl mg/dL (Negative) 05/15/19 14:45 Urine Glucose (UA) 50 mg/dL (Negative) 05/15/19 14:45 Urine Ketones Neg mg/dL (Negative) 05/15/19 14:45 Urine Blood Neg (Negative) 05/15/19 14:45 Urine Nitrite Neg (Negative) 05/15/19 14:45 Urine Bilirubin Neg (Negative) 05/15/19 14:45 Urine Urobilinogen < 2.0 mg/dL (<2.0) 05/15/19 14:45 Ur Leukocyte Esterase Tr (Negative) 05/15/19 14:45 Urine WBC (Auto) 2.0 /HPF (0.0-6.0) 05/15/19 14:45 Urine RBC (Auto) 2.0 /HPF (0.0-6.0) 05/15/19 14:45 U Epithel Cells (Auto) 2.0 /HPF (0-13.0) 05/15/19 14:45 Urine Bacteria (Auto) 4+ /HPF (Negative) 05/10/19 Unknown Urine Mucus Few /HPF 05/10/19 Unknown Urine Eosinophils Rare (None Seen) 05/13/19 00:40 Urine Creatinine 37.5 mg/dL (0.1-20.0) H 05/11/19 12:40 Protein/Creatinin Ratio 0.29 05/11/19 12:40 Urine Total Protein 11 mg/dL (5-11.8) 05/11/19 12:40 Hep Bs Antigen Non-reactive (Negative) 05/11/19 15:33 Hepatitis C Antibody Non-reactive (NonReactive) 05/11/19 15:33 Active Medications - Current Medications Current Medications: Generic Name Dose Route Start Last Admin Trade Name Freq PRN Reason Stop Dose Admin Amlodipine Besylate 10 mg 05/15/19 10:00 05/17/19 10:31 Amlodipine PO 10 mg QDAY SARAY Administration Bisacodyl 10 mg 05/15/19 15:45 Dulcolax UT QDAY PRN Constipation Docusate Sodium 100 mg 05/15/19 22:00 05/17/19 10:28 Colace PO 100 mg BID SARAY Administration Heparin Sodium (Porcine) 5,000 unit 05/10/19 22:30 05/17/19 10:28 Heparin SUB-Q 5,000 unit Q12HR SARAY Administration Hydralazine HCl 25 mg 05/15/19 08:00 05/17/19 05:51 Apresoline PO 25 mg Q8HR SARAY Administration Sodium Bicarbonate 75 meq/ 1,075 mls @ 125 mls/hr 05/17/19 05:00 05/17/19 05: 55 Dextrose IV 125 mls/hr DIRECT SARAY Administration Insulin Glargine 10 units 05/13/19 08:00 05/17/19 10:28 Lantus SUB-Q 10 units QAM@0800 SARAY Administration Insulin Human Lispro 0 unit 05/11/19 07:30 05/17/19 09:00 Humalog SUB-Q 2 unit ACHS SARAY Administration Protocol Ondansetron HCl 4 mg 05/12/19 20:40 05/12/19 21:22 Zofran IV 4 mg Q4H PRN Administration Nausea And Vomiting Oxycodone/Acetaminophen 1 tab 05/11/19 22:25 05/11/19 23:07 Percocet 5/325 PO 1 tab Q6H PRN Administration Pain, Moderate (4-6) Propranolol HCl 20 mg 05/11/19 10:00 05/17/19 10:29 Inderal PO 20 mg BID SARAY Administration Senna/Docusate Sodium 2 tab 05/15/19 15:45 05/15/19 17:01 Senokot S PO 2 tab Q12H PRN Administration Laxative Effect Nutrition/Malnutrition Assess - Dietary Evaluation Nutrition/Malnutrition Findings: Nutrition Notes Start: 05/17/19 09:23 Freq: Status: Active Protocol: Document 05/17/19 09:23 AP (Rec: 05/17/19 09:46 AP [email or web address]) Co-Sign 05/17/19 09:23 LP Nutrition Notes Need for Assessment generated from: LOS Initial or Follow up Assessment Current Diagnosis Acute Kidney Injury,CKD(stage I-IV),Diabetes,Hypertension, Hyperlipidemia Other Pertinent Diagnosis Hypoglycemia Current Diet Consistent CHO Labs/Tests K 3.1 BUN 25 Cr 3.2 BG 205 Pertinent Medications percocet zofran colace senna lantus humalog Height 5 ft 7 in Weight 76.6 kg Usual Body Weight 98.6 kg [place] Body Weight (kg) 61.36 BMI 26.4 Intake Prior to Admission Fair Weight change and time frame 23% in one year Weight Status Overweight Subjective/Other Information LOS. Pt Jose states pt tried to lose weight and succeeded, but kept losing unintentionally. Pt was attempting to eat bfast upon arrival. 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 No wasting noted. Educated pt on hypoglycemia following the rule. Recommended protein at each meal to sustain or keep BG levels on track. Pt had an emesis episode after my visit. Burn Absent Trauma Absent GI Symptoms Vomiting Food Allergy No Current % PO Fair (50-74%) Minimum of two criteria No physical signs of malnutrition Interpretation of Weight Loss (severe) > 20% in 1 year #2 Nutrition Diagnosis Food and nutrition-related knowledge deficit Etiology Pt in need of hypoglycemia education As Evidenced by Signs and Symptoms Pt BG 36 SNOW GROOMER #1 Nutrition Diagnosis Inadequate oral intake Etiology Pt experiencing N/V As Evidenced by Signs and Symptoms Pt had emesis episode right before bfast Is patient on ventilator? No Is Patient Ambulatory and/or Out of Bed Yes REE-([facility]-ambulatory/OOB) [ 1727.219 [id number]] Calculation Used for Recommendations [facility] Additional Notes PRO needs: 61-68g/day (0.8-0. 9g/kg) Fluid: 1ml/kcal or per MD Nutrition Intervention Change Diet Order: Continue consistent CHO Teaching Recipient Patient,Spouse Learning Readiness Good Teaching Methods Discussion,Handout Response to Teaching Verbalize understanding Education Handouts Provided Hypoglycemia facts sheet Barriers to Learning Age related Patient aware of follow up options Yes Goal #1 Pt meet >80% of kcal/PRO needs via PO Goal #2 Pt monitor BG levels and treat accordingly Anticipated Discharge Needs: Consistent CHO Follow-Up By: 05/21/19 Additional Comments F/U for PO intakes.
--- NOTE | 2019-05-17 14:32 | XRay Report ---
CHEST 1 VIEW INDICATION: YU. COMPARISON: 05/15/2019 FINDINGS: Support devices: None. Heart: Within normal limits. Lungs/Pleura: No acute air space or interstitial disease. Additional findings: None. IMPRESSION: No acute abnormality. Signer Name: Hesham [place] MD Signed: 05/17/2019 2:27 PM Workstation Name: [id number]
[2019-05-17] MEDS: SODIUM CHLORIDE 0.9% 1000 ML 1,000 ML IV SCH (15:32)
--- NOTE | 2019-05-17 17:02 | Progress Note ---
Assessment and Plan - Patient Problems (1) YU (acute kidney injury) Current Visit: Yes Status: Acute Plan to address problem: acute kidney injury baseline creatinine 1.March from patient's primary care office Current creatinine is 3.2 mg/DL I attempted to call the patient's family care clinic to find the patient's baseline kidney function I reviewed renal US right kidney 11x 5.7cm left kidney 11.5cm x 4.8cm reviewed UA negative protein or hematuria received additional fluid bolus Will obtain serologies Etiology of acute kidney injury likely secondary to volume depletion with acute tubular injury secondary to diabetes however she has not yet had significant improvement We'll continue aggressive hydration today Will await serology results If renal function worsens may need biopsy Continue normal saline avoid nephrotoxins Patient anxious to be discharged, Discussed with primary team appears to have ATN in the setting of DM with prolonged recovery, serologies still pending. given baseline normal renal function would only discharge if creatinine improves more at least less than 2.8mg/dl Stop hypotonic saline and change to normal saline She will need close follow up 1 week appt with Clinic on discharge. (2) Multiple episodes of hypoglycemia Current Visit: Yes Status: Acute Plan to address problem: Hypoglycemia monitor glucose continue adjusting medications d/c hypoglycemia inducing meds. (3) Hypertension Current Visit: Yes Status: Chronic Qualifiers: Hypertension type: essential hypertension Qualified Code(s): I10 - Essential (primary) hypertension Plan to address problem: HTN: controlled continue curent medications. (4) Anemia Current Visit: Yes Status: Acute Plan to address problem: mild anemia Hb: 10g/dl monitor CBC. Subjective Principal diagnosis: yu, on ?ckd Interval history: 69 year old with medical history of DM admitted with hypoglycemia on metformin and ACEI Patient seen today denies any shortness of breath , denies any fever. Reports good urine output Plan of care discussed with patient in detail creatinine is about the same. We will monitor closely renal function over the next 24 hours Will change intravenous fluids Objective - Vital Signs Vital signs: Vital Signs - 12hr 05/17/19 05/17/19 05/17/19 05:51 06:54 10:29 Temperature 97.9 F Pulse Rate 76 Respiratory 20 Rate Blood Pressure 127/69 152/83 125/69 O2 Sat by Pulse 95 Oximetry 05/17/19 05/17/19 05/17/19 10:31 11:37 13:21 Temperature 98.0 F Pulse Rate 66 Respiratory 16 Rate Blood Pressure 121/69 148/77 148/67 O2 Sat by Pulse 96 Oximetry - General Appearance General appearance: well-developed, well-nourished EENT: ATNC, PERRL Neck: no JVD Respiratory: Present: Clear to Ascultation Cardiology: regular, S1S2 Gastrointestinal: normal, normoactive bowel sounds Integumentary: no rash Neurologic: alert and oriented x3, CN 3-12 intact Psychiatric: mood/affect appropriate - Lab 05/17/19 05:29 05/17/19 05:29 Most recent lab results Calcium 8.8 mg/dL (8.4-10.2) 05/17/19 05:29 Urine Creatinine 37.5 mg/dL (0.1-20.0) H 05/11/19 12:40 Urine Total Protein 11 mg/dL (5-11.8) 05/11/19 12:40 - Imaging Chest x-ray: image reviewed (review chest x-ray without pulmonary edema) Medications & Allergies - Medications Allergies/Adverse Reactions: Allergies Penicillins Adverse Reaction (Verified 05/10/19 13:03) Unknown Home Medications: Home Medications Medication Instructions Recorded Confirmed Last Taken Type Metformin HCl [metFORMIN] 1,000 mg PO BID 05/10/19 05/10/19 2 Days Ago History ~05/08/19 Pravastatin [Pravachol] 80 mg PO QHS 05/10/19 05/10/19 1 Day Ago History ~05/09/19 Propranolol [Inderal] 20 mg PO BID 05/10/19 05/10/19 1 Day Ago History ~05/09/19 Quinapril HCl 40 mg PO QDAY 05/10/19 05/10/19 1 Day Ago History ~05/09/19 glipiZIDE [Glucotrol] 10 mg PO BID 05/10/19 05/10/19 2 Days Ago History ~05/08/19 hydroCHLOROthiazide [Hctz] 12.5 mg PO QDAY 05/10/19 05/10/19 1 Day Ago History ~05/09/19 Active Medications: Generic Name Dose Route Start Last Admin Trade Name Freq PRN Reason Stop Dose Admin Amlodipine Besylate 10 mg 05/15/19 10:00 05/17/19 10:31 Amlodipine PO 10 mg QDAY SARAY Administration Bisacodyl 10 mg 05/15/19 15:45 Dulcolax ID QDAY PRN Constipation Docusate Sodium 100 mg 05/15/19 22:00 05/17/19 10:28 Colace PO 100 mg BID SARAY Administration Heparin Sodium (Porcine) 5,000 unit 05/10/19 22:30 05/17/19 10:28 Heparin SUB-Q 5,000 unit Q12HR SARAY Administration Hydralazine HCl 25 mg 05/15/19 08:00 05/17/19 13:21 Apresoline PO 25 mg Q8HR SARAY Administration Sodium Chloride 1,000 mls @ 150 mls/hr 05/17/19 14:00 05/17/19 15:32 Nacl 0.9% 1000 Ml IV 150 mls/hr DIRECT SARAY Administration Insulin Glargine 10 units 05/13/19 08:00 05/17/19 10:28 Lantus SUB-Q 10 units QAM@0800 SARAY Administration Insulin Human Lispro 0 unit 05/11/19 07:30 05/17/19 12:56 Humalog SUB-Q 4 unit ACHS SARAY Administration Protocol Ondansetron HCl 4 mg 05/12/19 20:40 05/12/19 21:22 Zofran IV 4 mg Q4H PRN Administration Nausea And Vomiting Oxycodone/Acetaminophen 1 tab 05/11/19 22:25 05/11/19 23:07 Percocet 5/325 PO 1 tab Q6H PRN Administration Pain, Moderate (4-6) Propranolol HCl 20 mg 05/11/19 10:00 05/17/19 10:29 Inderal PO 20 mg BID SARAY Administration Senna/Docusate Sodium 2 tab 05/15/19 15:45 05/15/19 17:01 Senokot S PO 2 tab Q12H PRN Administration Laxative Effect
[2019-05-18 05:20] LABS: Basophils % (Auto) 0.4 % (0.0-1.8); Eosinophils # (Auto) 0.3 K/mm3 (0.0-0.4); Hemoglobin 10.3 gm/dl (10.1-14.3); Lymphocytes # (Auto) 1.8 K/mm3 (1.2-5.4); Lymphocytes % (Auto) 26.9 % (13.4-35.0); Mean Corpuscular HGB Conc 36 % (30-34); Mean Corpuscular Volume 87 fl (79-97); Monocytes # (Auto) 0.6 K/mm3 (0.0-0.8); Monocytes % (Auto) 8.2 % (0.0-7.3); Platelet Count 233 K/mm3 (140-440); Red Blood Count 3.34 M/mm3 (3.65-5.03); Red Cell Distribution Width 13.9 % (13.2-15.2)
[2019-05-18] MEDS: hydrALAZINE 25 MG TAB PO SCH ×3 (05:40→21:10)
[2019-05-18] MEDS ORDERED: POTASSIUM CHLORIDE ER 20 MEQ TAB PO ONE (07:49)
[2019-05-18] MEDS: INSULIN LISPRO 100 UNIT/ML SUB-Q SCH ×5 (08:32→21:35)
[2019-05-18] MEDS: INSULIN GLARGINE 100 UNITS/ML SUB-Q SCH (10:16)
[2019-05-18] MEDS: HEPARIN 5,000 UNIT/1 ML VIAL SUB-Q SCH ×2 (10:16→21:09)
[2019-05-18] MEDS: DOCUSATE SODIUM 100 MG/10 ML ORAL LIQD PO SCH ×2 (10:16→21:09)
[2019-05-18] MEDS: SODIUM CHLORIDE 0.9% 1000 ML 1,000 ML IV SCH ×2 (10:26→21:09)
--- NOTE | 2019-05-18 12:02 | Progress Note ---
Assessment and Plan Assessment and plan: 69-year-old female presents to the emergency department via EMS from home with the complaint of hypoglycemia. The patient's blood sugar has been fluctuating over the past few days. Patient's , who is bedside, says that her blood sugar went down to 36 2 nights ago. EMS was called out to their home and she was given some IV glucose. Her blood sugar went up appropriately at that time so they decided they did not want transport to any emergency department.Patient was having recurrrent hypoglycemic episodes --hence admission. Oral hypoglycemics metformin and Glyburide stopped. Patient had a creatinine of 3.7--hence hypoglycemic episodes. Doing better now. * Renal function is still guarded, creatinine baseline in March just a few weeks ago was 1.3 patient was on metformin and also on lisinopril * Creatinine came down to 3.1 discussed plan of care again with patient and who is at the bedside today. * On discussion with nephrology would like to see him much improved turnaround prior to discharging the patient * She is clinically stable will give additional fluids today. * Discussed extensively with client hr manager will continue to monitor in-house and will discharge once creatinine is below 2.8. I also discussed this with the patient this appears to be diabetic nephropathy mediated ATN but unfortunately takes quite some time to resolve. (1) Multiple episodes of hypoglycemia Current Visit: Yes Status: Acute Plan to address problem: Oral hypoglycemics stopped. Cont Lantus 10 units once daily in AM which she was taking at home twice a day (2) YU (acute kidney injury) with vasomotor nephropathy and diabetic nephropathy and underlying ATN/ Current Visit: Yes Status: Acute Plan to address problem: IV fluids for now Has underlying CKD baseline renal function PER PCP office in March was 1.3 Nephrology following. Creatinine is getting worse will monitor closely to ensure that we get to apply to before discharge. (3) UTI (urinary tract infection) Current Visit: Yes Status: Acute Qualifiers: Urinary tract infection type: acute cystitis Hematuria presence: without hematuria Qualified Code(s): N30.00 - Acute cystitis without hematuria Plan to address problem: On Levaquin (4) Hypertension Current Visit: Yes Status: Chronic Qualifiers: Hypertension type: essential hypertension Qualified Code(s): I10 - Essential (primary) hypertension Plan to address problem: Cont antihypertensives (5) Hyperkalemia now Hypokalmia Current Visit: Yes Status: Acute Plan to address problem: Resolved of hyperkalemia. Give additional replacement of potassium. (6) HLD (hyperlipidemia) Current Visit: Yes Status: Chronic Qualifiers: Hyperlipidemia type: mixed hyperlipidemia Qualified Code(s): E78.2 - Mixed hyperlipidemia Plan to address problem: Cont statins (7) DVT prophylaxis Current Visit: Yes Status: Acute Plan to address problem: On Heparin and GI prophylaxis (8) Acute Metabolism Encephalopathy secondary Hypoglycemia now resolved Now resolved Plan discussed with client hr manager and also patient History Interval history: patient seen and examined, resting comfortable, tolerating PO intake, ambulation. No adverse event reported to me overnight. at bedside Hospitalist Physical - Physical exam Narrative exam: General appearance: Present: no acute distress, well-nourished, Resting comfortable. No clinical change - EENT Eyes: PERRL, EOM intact ENT: hearing intact, clear oral mucosa Ears: bilateral: normal - Neck Neck: supple, normal ROM - Respiratory Respiratory effort: normal Respiratory: bilateral: CTA - Breasts Breasts: normal - Cardiovascular Heart rate: 78 Rhythm: regular Heart Sounds: Present: S1 & S2. Absent: gallop, rub Extremities: pulses intact, No edema, normal color, Full ROM - Gastrointestinal General gastrointestinal: Present: soft, non-tender, non-distended, normal bowel sounds - Genitourinary Female genitourinary: normal - Integumentary Integumentary: clear, warm, dry - Musculoskeletal Musculoskeletal: 1, strength equal bilaterally - Neurologic Neurologic: moves all extremities - Psychiatric Psychiatric: memory intact, appropriate mood/affect, intact judgment & insight - Constitutional Vitals: Temp Pulse Resp BP Pulse Ox 97.1 F L 73 16 132/64 96 05/18/19 05:34 05/18/19 05:40 05/18/19 05:34 05/18/19 05:40 05/18/19 05:34 General appearance: Present: no acute distress, well-nourished Results - Labs CBC & Chem 7: 05/18/19 04:16 05/18/19 04:16 Labs: Laboratory Last Values WBC 6.8 K/mm3 (4.5-11.0) 05/18/19 04:16 RBC 3.34 M/mm3 (3.65-5.03) L 05/18/19 04:16 Hgb 10.3 gm/dl (10.1-14.3) 05/18/19 04:16 Hct 29.0 % (30.3-42.9) L 05/18/19 04:16 MCV 87 fl (79-97) 05/18/19 04:16 MCH 31 pg (28-32) 05/18/19 04:16 MCHC 36 % (30-34) H 05/18/19 04:16 RDW 13.9 % (13.2-15.2) 05/18/19 04:16 Plt Count 233 K/mm3 (140-440) 05/18/19 04:16 Lymph % (Auto) 26.9 % (13.4-35.0) 05/18/19 04:16 [place] % (Auto) 8.2 % (0.0-7.3) H 05/18/19 04:16 Eos % (Auto) 4.0 % (0.0-4.3) 05/18/19 04:16 Baso % (Auto) 0.4 % (0.0-1.8) 05/18/19 04:16 Lymph # 1.8 K/mm3 (1.2-5.4) 05/18/19 04:16 [place] # 0.6 K/mm3 (0.0-0.8) 05/18/19 04:16 Eos # 0.3 K/mm3 (0.0-0.4) 05/18/19 04:16 Baso # 0.0 K/mm3 (0.0-0.1) 05/18/19 04:16 Seg Neutrophils % 60.5 % (40.0-70.0) 05/18/19 04:16 Seg Neutrophils # 4.1 K/mm3 (1.8-7.7) 05/18/19 04:16 VBG pH 7.307 (7.320-7.420) L 05/10/19 10:08 Sodium 144 mmol/L (137-145) 05/18/19 04:16 Potassium 3.2 mmol/L (3.6-5.0) L 05/18/19 04:16 Chloride 104.8 mmol/L (98-107) 05/18/19 04:16 Carbon Dioxide 24 mmol/L (22-30) 05/18/19 04:16 Anion Gap 18 mmol/L 05/18/19 04:16 BUN 21 mg/dL (7-17) H 05/18/19 04:16 Creatinine 3.1 mg/dL (0.7-1.2) H 05/18/19 04:16 Estimated GFR 15 ml/min 05/18/19 04:16 BUN/Creatinine Ratio 7 % 05/18/19 04:16 Glucose 115 mg/dL (65-100) H 05/18/19 04:16 POC Glucose 131 (70-105) H 05/18/19 07:56 Calcium 9.0 mg/dL (8.4-10.2) 05/18/19 04:16 Total Bilirubin 0.20 mg/dL (0.1-1.2) 05/11/19 04:19 AST 12 units/L (5-40) 05/11/19 04:19 ALT 5 units/L (7-56) L 05/11/19 04:19 Alkaline Phosphatase 60 units/L (35-129) 05/11/19 04:19 Total Protein 6.7 g/dL (6.3-8.2) 05/11/19 04:19 Albumin 3.8 g/dL (3.9-5) L 05/11/19 04:19 Albumin/Globulin Ratio 1.3 % 05/11/19 04:19 TSH 1.670 mlU/mL (0.270-4.200) 05/10/19 10:08 Urine Color Colorless (Yellow) 05/15/19 14:45 Urine Turbidity Clear (Clear) 05/15/19 14:45 Urine pH 7.0 (5.0-7.0) 05/15/19 14:45 Ur Specific [place] 1.004 (1.003-1.030) 05/15/19 14:45 Urine Protein <15 mg/dl mg/dL (Negative) 05/15/19 14:45 Urine Glucose (UA) 50 mg/dL (Negative) 05/15/19 14:45 Urine Ketones Neg mg/dL (Negative) 05/15/19 14:45 Urine Blood Neg (Negative) 05/15/19 14:45 Urine Nitrite Neg (Negative) 05/15/19 14:45 Urine Bilirubin Neg (Negative) 05/15/19 14:45 Urine Urobilinogen < 2.0 mg/dL (<2.0) 05/15/19 14:45 Ur Leukocyte Esterase Tr (Negative) 05/15/19 14:45 Urine WBC (Auto) 2.0 /HPF (0.0-6.0) 05/15/19 14:45 Urine RBC (Auto) 2.0 /HPF (0.0-6.0) 05/15/19 14:45 U Epithel Cells (Auto) 2.0 /HPF (0-13.0) 05/15/19 14:45 Urine Bacteria (Auto) 4+ /HPF (Negative) 05/10/19 Unknown Urine Mucus Few /HPF 05/10/19 Unknown Urine Eosinophils Rare (None Seen) 05/13/19 00:40 Urine Creatinine 37.5 mg/dL (0.1-20.0) H 05/11/19 12:40 Protein/Creatinin Ratio 0.29 05/11/19 12:40 Urine Total Protein 11 mg/dL (5-11.8) 05/11/19 12:40 Hep Bs Antigen Non-reactive (Negative) 05/11/19 15:33 Hepatitis C Antibody Non-reactive (NonReactive) 05/11/19 15:33 Active Medications - Current Medications Current Medications: Generic Name Dose Route Start Last Admin Trade Name Freq PRN Reason Stop Dose Admin Amlodipine Besylate 10 mg 05/15/19 10:00 05/17/19 10:31 Amlodipine PO 10 mg QDAY SARYA Administration Bisacodyl 10 mg 05/15/19 15:45 Dulcolax [place] QDAY PRN Constipation Docusate Sodium 100 mg 05/15/19 22:00 05/18/19 10:16 Colace PO Not Given BID SARAY Heparin Sodium (Porcine) 5,000 unit 05/10/19 22:30 05/18/19 10:16 Heparin SUB-Q 5,000 unit Q12HR SARAY Administration Hydralazine HCl 25 mg 05/15/19 08:00 05/18/19 05:40 Apresoline PO 25 mg Q8HR SARAY Administration Sodium Chloride 1,000 mls @ 150 mls/hr 05/17/19 14:00 05/18/19 10:26 Nacl 0.9% 1000 Ml IV 150 mls/hr DIRECT SARAY Administration Insulin Glargine 10 units 05/13/19 08:00 05/18/19 10:16 Lantus SUB-Q 10 units QAM@0800 SARAY Administration Insulin Human Lispro 0 unit 05/11/19 07:30 05/18/19 08:32 Humalog SUB-Q Not Given ACHS [facility] Protocol Ondansetron HCl 4 mg 05/12/19 20:40 05/12/19 21:22 Zofran IV 4 mg Q4H PRN Administration Nausea And Vomiting Oxycodone/Acetaminophen 1 tab 05/11/19 22:25 05/11/19 23:07 Percocet 5/325 PO 1 tab Q6H PRN Administration Pain, Moderate (4-6) Propranolol HCl 20 mg 05/11/19 10:00 05/17/19 21:14 Inderal PO 20 mg BID SARAY Administration Senna/Docusate Sodium 2 tab 05/15/19 15:45 05/15/19 17:01 Senokot S PO 2 tab Q12H PRN Administration Laxative Effect Nutrition/Malnutrition Assess - Dietary Evaluation Nutrition/Malnutrition Findings: Nutrition Notes Start: 05/17/19 09:23 Freq: Status: Active Protocol: Document 05/17/19 09:23 AP (Rec: 05/17/19 09:46 AP [email or web address]) Co-Sign 05/17/19 09:23 LP Nutrition Notes Need for Assessment generated from: LOS Initial or Follow up Assessment Current Diagnosis Acute Kidney Injury,CKD(stage I-IV),Diabetes,Hypertension, Hyperlipidemia Other Pertinent Diagnosis Hypoglycemia Current Diet Consistent CHO Labs/Tests K 3.1 BUN 25 Cr 3.2 BG 205 Pertinent Medications percocet zofran colace senna lantus humalog Height 5 ft 7 in Weight 76.6 kg Usual Body Weight 98.6 kg [place] Body Weight (kg) 61.36 BMI 26.4 Intake Prior to Admission Fair Weight change and time frame 23% in one year Weight Status Overweight Subjective/Other Information LOS. Pt Jose states pt tried to lose weight and succeeded, but kept losing unintentionally. Pt was attempting to eat bfast upon arrival. 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 No wasting noted. Educated pt on hypoglycemia following the rule. Recommended protein at each meal to sustain or keep BG levels on track. Pt had an emesis episode after my visit. Burn Absent Trauma Absent GI Symptoms Vomiting Food Allergy No Current % PO Fair (50-74%) Minimum of two criteria No physical signs of malnutrition Interpretation of Weight Loss (severe) > 20% in 1 year #2 Nutrition Diagnosis Food and nutrition-related knowledge deficit Etiology Pt in need of hypoglycemia education As Evidenced by Signs and Symptoms Pt BG 36 SENIOR RESEARCH MANAGER #1 Nutrition Diagnosis Inadequate oral intake Etiology Pt experiencing N/V As Evidenced by Signs and Symptoms Pt had emesis episode right before bfast Is patient on ventilator? No Is Patient Ambulatory and/or Out of Bed Yes REE-([facility]-ambulatory/OOB) [ 1727.219 [id number]] Calculation Used for Recommendations [facility] Additional Notes PRO needs: 61-68g/day (0.8-0. 9g/kg) Fluid: 1ml/kcal or per MD Nutrition Intervention Change Diet Order: Continue consistent CHO Teaching Recipient Patient,Spouse Learning Readiness Good Teaching Methods Discussion,Handout Response to Teaching Verbalize understanding Education Handouts Provided Hypoglycemia facts sheet Barriers to Learning Age related Patient aware of follow up options Yes Goal #1 Pt meet >80% of kcal/PRO needs via PO Goal #2 Pt monitor BG levels and treat accordingly Anticipated Discharge Needs: Consistent CHO Follow-Up By: 05/21/19 Additional Comments F/U for PO intakes.
[2019-05-18] MEDS: amLODIPine 10 MG TAB PO SCH (12:42)
[2019-05-18] MEDS: PROPRANOLOL 10 MG TAB PO SCH ×2 (12:42→21:11)
--- NOTE | 2019-05-18 16:02 | Progress Note ---
Assessment and Plan - Patient Problems (1) YU (acute kidney injury) Current Visit: Yes Status: Acute Plan to address problem: acute kidney injury baseline creatinine 1.March from patient's primary care office Current creatinine is 3.1 mg/DL I attempted to call the patient's family care clinic to find the patient's baseline kidney function I reviewed renal US right kidney 11x 5.7cm left kidney 11.5cm x 4.8cm reviewed UA negative protein or hematuria received additional fluid bolus Will obtain serologies Etiology of acute kidney injury likely secondary to volume depletion with acute tubular injury secondary to diabetes however she has not yet had significant improvement We'll continue aggressive hydration today Will await serology results If renal function worsens may need biopsy Continue normal saline avoid nephrotoxins Patient anxious to be discharged, Discussed with primary team appears to have ATN in the setting of DM with prolonged recovery, serologies still pending. given baseline normal renal function, can discharge if creatinine improves more at least less than 2.8mg/dl Stop hypotonic saline and change to normal saline close follow up 1 week appt with nephrology Clinic on discharge. (2) Multiple episodes of hypoglycemia Current Visit: Yes Status: Acute Plan to address problem: Hypoglycemia monitor glucose continue adjusting medications d/c hypoglycemia inducing meds. (3) Hypertension Current Visit: Yes Status: Chronic Qualifiers: Hypertension type: essential hypertension Qualified Code(s): I10 - Essential (primary) hypertension Plan to address problem: HTN: controlled continue curent medications. (4) Anemia Current Visit: Yes Status: Acute Plan to address problem: mild anemia Hb: 10g/dl monitor CBC. Subjective Principal diagnosis: yu, on ?ckd Interval history: 69 year old with medical history of DM admitted with hypoglycemia on metformin and ACEI Patient seen today denies any shortness of breath , denies any fever. Reports good urine output Continue intravenous fluids Objective - Vital Signs Vital signs: Vital Signs - 12hr 05/18/19 05/18/19 05/18/19 05:29 05:34 05:40 Temperature 97.1 F L Pulse Rate 73 73 Respiratory 16 Rate Blood Pressure 132/64 132/64 Blood Pressure 132/64 [Left] O2 Sat by Pulse 96 Oximetry 05/18/19 12:42 Temperature Pulse Rate 76 Respiratory Rate Blood Pressure 140/71 Blood Pressure [Left] O2 Sat by Pulse Oximetry - General Appearance General appearance: well-developed, well-nourished EENT: ATNC, PERRL Neck: no JVD Respiratory: Present: Clear to Ascultation Cardiology: regular, S1S2 Gastrointestinal: normal, normoactive bowel sounds Integumentary: no rash Neurologic: alert and oriented x3, CN 3-12 intact Psychiatric: mood/affect appropriate - Lab 05/18/19 04:16 05/18/19 04:16 Most recent lab results Calcium 9.0 mg/dL (8.4-10.2) 05/18/19 04:16 Urine Creatinine 37.5 mg/dL (0.1-20.0) H 05/11/19 12:40 Urine Total Protein 11 mg/dL (5-11.8) 05/11/19 12:40 Medications & Allergies - Medications Allergies/Adverse Reactions: Allergies Penicillins Adverse Reaction (Verified 05/10/19 13:03) Unknown Home Medications: Home Medications Medication Instructions Recorded Confirmed Last Taken Type Metformin HCl [metFORMIN] 1,000 mg PO BID 05/10/19 05/10/19 2 Days Ago History ~05/08/19 Pravastatin [Pravachol] 80 mg PO QHS 05/10/19 05/10/19 1 Day Ago History ~05/09/19 Propranolol [Inderal] 20 mg PO BID 05/10/19 05/10/19 1 Day Ago History ~05/09/19 Quinapril HCl 40 mg PO QDAY 05/10/19 05/10/19 1 Day Ago History ~05/09/19 glipiZIDE [Glucotrol] 10 mg PO BID 05/10/19 05/10/19 2 Days Ago History ~05/08/19 hydroCHLOROthiazide [Hctz] 12.5 mg PO QDAY 05/10/19 05/10/19 1 Day Ago History ~05/09/19 Active Medications: Generic Name Dose Route Start Last Admin Trade Name Freq PRN Reason Stop Dose Admin Amlodipine Besylate 10 mg 05/15/19 10:00 05/18/19 12:42 Amlodipine PO 10 mg QDAY SARAY Administration Bisacodyl 10 mg 05/15/19 15:45 Dulcolax [place] QDAY PRN Constipation Docusate Sodium 100 mg 05/15/19 22:00 05/18/19 10:16 Colace PO Not Given BID [facility] Heparin Sodium (Porcine) 5,000 unit 05/10/19 22:30 05/18/19 10:16 Heparin SUB-Q 5,000 unit Q12HR SARAY Administration Hydralazine HCl 25 mg 05/15/19 08:00 05/18/19 05:40 Apresoline PO 25 mg Q8HR SARAY Administration Sodium Chloride 1,000 mls @ 150 mls/hr 05/17/19 14:00 05/18/19 10:26 Nacl 0.9% 1000 Ml IV 150 mls/hr DIRECT SARAY Administration Insulin Glargine 10 units 05/13/19 08:00 05/18/19 10:16 Lantus SUB-Q 10 units QAM@0800 SARAY Administration Insulin Human Lispro 0 unit 05/11/19 07:30 05/18/19 13:01 Humalog SUB-Q 4 unit ACHS SARAY Administration Protocol Ondansetron HCl 4 mg 05/12/19 20:40 05/12/19 21:22 Zofran IV 4 mg Q4H PRN Administration Nausea And Vomiting Oxycodone/Acetaminophen 1 tab 05/11/19 22:25 05/11/19 23:07 Percocet 5/325 PO 1 tab Q6H PRN Administration Pain, Moderate (4-6) Propranolol HCl 20 mg 05/11/19 10:00 05/18/19 12:42 Inderal PO 20 mg BID SARAY Administration Senna/Docusate Sodium 2 tab 05/15/19 15:45 05/15/19 17:01 Senokot S PO 2 tab Q12H PRN Administration Laxative Effect
[2019-05-19] MEDS: SODIUM CHLORIDE 0.9% 1000 ML 1,000 ML IV SCH (02:46)
[2019-05-19] MEDS: hydrALAZINE 25 MG TAB PO SCH (06:22)
[2019-05-19] MEDS: INSULIN LISPRO 100 UNIT/ML SUB-Q SCH (08:04)
[2019-05-19] MEDS: INSULIN GLARGINE 100 UNITS/ML SUB-Q SCH (08:35)
[2019-05-19 08:55] LABS: Calcium 8.3 mg/dL (8.4-10.2)
[2019-05-19 09:01] LABS: Calcium 8.2 mg/dL (8.4-10.2)
--- NOTE | 2019-05-19 09:04 | Discharge Summary ---
Providers - Providers Date of Admission: 05/10/19 11:32 Attending physician: FLAKITO BARDALES MD 05/10/19 11:00 Consult to Physician [CONS] Routine Comment: Consulting Provider: POLLY MA Physician Instructions: Reason For Exam: Acute renal failure, Hyperkalemia Hospitalization Reason for admission: YU Condition: Stable Hospital course: 69-year-old female presents to the emergency department via EMS from home with the complaint of hypoglycemia. The patient's blood sugar has been fluctuating over the past few days. Patient's , who is bedside, says that her blood sugar went down to 36 2 nights ago. EMS was called out to their home and she was given some IV glucose. Her blood sugar went up appropriately at that time so they decided they did not want transport to any emergency department.Patient was having recurrrent hypoglycemic episodes --hence admission. Oral hypoglycemics metformin and Glyburide stopped. Patient had a creatinine of 3.7--hence hypoglycemic episodes. Doing better now. * Renal function is still guarded, creatinine baseline in March just a few weeks ago was 1.3 patient was on metformin and also on lisinopril * Creatinine came down to 3.1 discussed plan of care again with patient and who is at the bedside today. * On discussion with nephrology would like to see him much improved turnaround prior to discharging the patient * She is clinically stable will give additional fluids today. * Discussed extensively with chronic condition nurse will continue to monitor in-house and will discharge once creatinine is below 2.8. I also discussed this with the patient this appears to be diabetic nephropathy mediated ATN but unfortunately takes quite some time to resolve. (1) Multiple episodes of hypoglycemia Oral hypoglycemics stopped. Cont Lantus 10 units once daily in AM which she was taking at home twice a day (2) YU (acute kidney injury) with vasomotor nephropathy and diabetic nephropathy and underlying ATN/ IV fluids with multiple boluse was given Has underlying CKD baseline renal function PER PCP office in March was 1.3 and as noted above patients baseline was determined with recommendation to get closer to below 2.8 but paint was not interested and wanted to go home and follow outpatient (3) UTI (urinary tract infection) Current Visit: Yes Status: Acute Qualifiers: Urinary tract infection type: acute cystitis Hematuria presence: without hematuria Qualified Code(s): N30.00 - Acute cystitis without hematuria Plan to address problem: On Levaquin (4) Hypertension Current Visit: Yes Status: Chronic Qualifiers: Hypertension type: essential hypertension Qualified Code(s): I10 - Essential (primary) hypertension Plan to address problem: Cont antihypertensives (5) Hyperkalemia now Hypokalmia Current Visit: Yes Status: Acute Plan to address problem: Resolved of hyperkalemia. Give additional replacement of potassium. (6) HLD (hyperlipidemia) Current Visit: Yes Status: Chronic Qualifiers: Hyperlipidemia type: mixed hyperlipidemia Qualified Code(s): E78.2 - Mixed hyperlipidemia Plan to address problem: Cont statins (7) Acute Metabolism Encephalopathy secondary Hypoglycemia now resolved Now resolved P Disposition: DC-01 TO HOME OR SELFCARE Time spent for discharge: 35 mins Core Measure Documentation - Palliative Care Palliative Care/ Comfort Measures: Not Applicable - Core Measures Any of the following diagnoses?: none Exam - Physical Exam Narrative exam: General appearance: Present: no acute distress, well-nourished, Resting comfortable. No clinical change - EENT Eyes: PERRL, EOM intact ENT: hearing intact, clear oral mucosa Ears: bilateral: normal - Neck Neck: supple, normal ROM - Respiratory Respiratory effort: normal Respiratory: bilateral: CTA - Breasts Breasts: normal - Cardiovascular Heart rate: 78 Rhythm: regular Heart Sounds: Present: S1 & S2. Absent: gallop, rub Extremities: pulses intact, No edema, normal color, Full ROM - Gastrointestinal General gastrointestinal: Present: soft, non-tender, non-distended, normal bowel sounds - Genitourinary Female genitourinary: normal - Integumentary Integumentary: clear, warm, dry - Musculoskeletal Musculoskeletal: 1, strength equal bilaterally - Neurologic Neurologic: moves all extremities - Psychiatric Psychiatric: memory intact, appropriate mood/affect, intact judgment & insight - Constitutional Vitals: Temp Pulse Resp BP Pulse Ox 97.7 F 78 18 141/71 95 05/19/19 05:45 05/19/19 06:22 05/19/19 05:45 05/19/19 06:22 05/19/19 05:45 Plan Activity: advance as tolerated, fall precautions Diet: low fat, renal Special Instructions: record daily BP diary Additional Instructions: must have repeat lab work BMP in 3 days with PCP or [employer] Follow up with: SANDIE DIXON MD [Referring] - 3-5 Days BARTOLOME TILLMAN MD [Staff Physician] - 3 Days Prescriptions: Insulin Glargine [Lantus VIAL] 14 units SUB-Q QHS #100 units amLODIPine 10 mg PO QDAY #30 tablet hydrALAZINE [Apresoline TAB] 25 mg PO Q8HR #90 tablet Other Discharge Orders: Glucometer (Amb) Location: None Selected Glucometer supplies[Amb] Location: None Selected
[2019-05-19] MEDS ORDERED: SODIUM BICARB 8.4% 50 MEQ/50 ML SYRINGE IV ONE (10:00)
[2019-05-19] MEDS: PROPRANOLOL 10 MG TAB PO SCH (11:19)
[2019-05-19 11:20] VITALS: BP 156/78
[2019-05-19] MEDS: amLODIPine 10 MG TAB PO SCH (11:20)
[2019-05-19] MEDS: DOCUSATE SODIUM 100 MG/10 ML ORAL LIQD PO SCH (11:25)
[2019-05-19] MEDS: HEPARIN 5,000 UNIT/1 ML VIAL SUB-Q SCH (11:25)
[2019-05-20 17:37] LABS: Myeloperoxidase Antibody <1.0 AI (<1.0)
[2019-05-22 22:04] LABS: ANA Screen, IFA Negative (Negative)
== END 2019-05-19 12:40 | disposition home or self-care (01) | DRG 637 ==
LOC: ED 09:28 → 3A 11:32
PROVIDERS: ADMIT Internal Medicine; ATTEND Internal Medicine
DX: E11.649 Type 2 diabetes mellitus with hypoglycemia without coma (principal); G93.41 Metabolic encephalopathy; N30.00 Acute cystitis without hematuria; N17.0 Acute kidney failure with tubular necrosis; E78.00 Pure hypercholesterolemia, unspecified; E87.5 Hyperkalemia; E11.22 Type 2 diabetes mellitus with diabetic chronic kidney disease; I12.9 Hypertensive chronic kidney disease with stage 1 through stage 4 chronic kidney disease, or unspecified chronic kidney disease; N18.9 Chronic kidney disease, unspecified; E78.2 Mixed hyperlipidemia; E86.9 Volume depletion, unspecified; D64.9 Anemia, unspecified; E87.6 Hypokalemia; E11.21 Type 2 diabetes mellitus with diabetic nephropathy; Z79.4 Long term (current) use of insulin; Z88.0 Allergy status to penicillin; Z79.899 Other long term (current) drug therapy
CPT/HCPCS: 36415; 71045; 76770; 80048; 80053; 81001; 82570; 82805; 82962; 83520; 84156; 84443; 85025; 86021; 86038; 86160; 86334; 86706; 86803; 87086; 89050; 96372; G0378; J0610; J0696; J1644; J1815; J1956; J2405; J7030; J7070

== ENCOUNTER 2020-07-06 12:47 | Emergency (ER) | payer MEDICARE ==
--- NOTE | 2020-07-06 13:47 | Event Note ---
ED Screening Note ED Screening Note: states she has been having black stool for a week no abd pain +nausea no vomiting no bright red blood in stool states she has had intermittent constipation had a colonscopy 5 years ago which she states was normal PMHx HTN, HLD, DM allergy:penicillin This initial assessment/diagnostic orders/clinical plan/treatment(s) is/are subject to change based on patients health status, clinical progression and re- assessment by fellow clinical providers in the ED. Further treatment and workup at subsequent clinical providers discretion. Patient/guardian urged not to elope from the ED as their condition may be serious if not clinically assessed and managed. Initial orders include: labs, ua
[2020-07-06 14:24] LABS: Basophils % (Auto) 0.4 % (0.0-1.8); Eosinophils # (Auto) 0.3 K/mm3 (0.0-0.4); Eosinophils % (Auto) 3.2 % (0.0-4.3); Hematocrit 31.5 % (30.3-42.9); Hemoglobin 10.7 gm/dl (10.1-14.3); Lymphocytes # (Auto) 1.4 K/mm3 (1.2-5.4); Lymphocytes % (Auto) 14.6 % (13.4-35.0); Mean Corpuscular HGB Conc 34 % (30-34); Mean Corpuscular Volume 90 fl (79-97); Monocytes # (Auto) 0.5 K/mm3 (0.0-0.8); Monocytes % (Auto) 5.3 % (0.0-7.3); Platelet Count 279 K/mm3 (140-440); Red Blood Count 3.48 M/mm3 (3.65-5.03); Red Cell Distribution Width 13.1 % (13.2-15.2)
[2020-07-06 14:34] LABS: INR 1.08 (0.87-1.13)
[2020-07-06 14:49] LABS: Albumin 4.1 g/dL (3.9-5); Calcium 9.5 mg/dL (8.4-10.2)
--- NOTE | 2020-07-06 20:02 | Emergency Department Report ---
ED GI Bleed HPI - General Chief complaint: Abdominal Pain Stated complaint: FATIGUE Time Seen by Provider: 07/06/20 13:45 Source: patient, EMS Mode of arrival: Ambulatory Limitations: No Limitations - History of Present Illness Initial comments: 70-year-old female presents to the ED with report of dark-colored stool, intermittent, for the last 3 weeks. Patient decided to come to the ED today to get it checked out because she reports her mother had a history of colon cancer. Patient states she has had a colonoscopy 5 years ago which was normal. Patient states she has had stools that have been very dark in color. She denies any bright red blood or blood on the toilet paper. Patient denies any abdominal pain, vomiting, diarrhea. Patient reported to triage nurse that she has been constipated x1 week, however she tells me last bowel movement was yesterday. Patient denies taking iron pills, but states she takes a vitamin pill that her kidney doctor has her on. Patient denies any urinary symptoms, including urinary frequency, dysuria, hematuria. -: week(s) (3) Quality: painless Consistency: intermittent Improves with: none Worsens with: none Associated Symptoms: denies: abdominal pain, nausea, vomiting - Related Data Home Medications Medication Instructions Recorded Confirmed Last Taken Pravastatin [Pravachol] 80 mg PO QHS 05/10/19 05/10/19 1 Day Ago ~05/09/19 propranoloL [Inderal] 20 mg PO BID 05/10/19 05/10/19 1 Day Ago ~05/09/19 Previous Rx's Medication Instructions Recorded Last Taken Type Insulin Glargine [Lantus VIAL] 14 units SUB-Q QHS #100 units 05/19/19 Unknown Rx amLODIPine 10 mg PO QDAY #30 tablet 05/19/19 Unknown Rx hydrALAZINE [Apresoline TAB] 25 mg PO Q8HR #90 tablet 05/19/19 Unknown Rx Allergies Allergy/AdvReac Type Severity Reaction Status Date / Time Penicillins AdvReac Unknown Verified 05/10/19 13:03 ED Review of Systems ROS: Stated complaint: FATIGUE Other details as noted in HPI Comment: All other systems reviewed and negative Constitutional: denies: chills, fever Gastrointestinal: melena. denies: abdominal pain, nausea, vomiting, diarrhea ED Past Medical Hx - Past Medical History Hx Hypertension: Yes Hx Diabetes: Yes Additional medical history: HIGH CHOLESTEROL - Surgical History Additional Surgical History: HYSTO/ C SECTION / - Social History Smoking Status: Never Smoker Substance Use Type: None - Medications Home Medications: Home Medications Medication Instructions Recorded Confirmed Last Taken Type Pravastatin [Pravachol] 80 mg PO QHS 05/10/19 05/10/19 1 Day Ago History ~05/09/19 propranoloL [Inderal] 20 mg PO BID 05/10/19 05/10/19 1 Day Ago History ~05/09/19 Insulin Glargine [Lantus VIAL] 14 units SUB-Q QHS #100 units 05/19/19 Unknown Rx amLODIPine 10 mg PO QDAY #30 tablet 05/19/19 Unknown Rx hydrALAZINE [Apresoline TAB] 25 mg PO Q8HR #90 tablet 05/19/19 Unknown Rx ED Physical Exam - General Limitations: No Limitations General appearance: alert, in no apparent distress - Head Head exam: Present: atraumatic, normocephalic - Eye Eye exam: Present: normal appearance, EOMI - ENT ENT exam: Present: mucous membranes moist - Neck Neck exam: Present: normal inspection - Respiratory Respiratory exam: Present: normal lung sounds bilaterally. Absent: respiratory distress - Cardiovascular Cardiovascular Exam: Present: normal rhythm, bradycardia - GI/Abdominal GI/Abdominal exam: Present: soft. Absent: distended, tenderness - Rectal Rectal exam: Present: other (Very dark greenish-brown color). Absent: heme (-) stool - Extremities Exam Extremities exam: Present: normal inspection - Neurological Exam Neurological exam: Present: alert, oriented X3 - Psychiatric Psychiatric exam: Present: normal affect, normal mood - Skin Skin exam: Present: warm, dry, intact, normal color ED Course Vital Signs 07/06/20 07/06/20 07/06/20 13:02 19:50 20:00 Temperature 97.7 F 97.8 F Pulse Rate 56 L 70 84 Respiratory 22 16 13 Rate Blood Pressure 160/73 155/80 Blood Pressure 155/80 [Right] O2 Sat by Pulse 100 98 100 Oximetry ED Medical Decision Making - Lab Data Result diagrams: 07/06/20 14:08 07/06/20 14:08 - Medical Decision Making 70-year-old female presents to ED with complaint of dark-colored stool. Patient concerned about having blood in her stool, reports mother has a history of colon cancer. Patient denies any abdominal pain, vomiting, diarrhea. Abdomen soft and nontender. Stool guaiac is negative, although stool is very dark in appearance. Patient denies taking any iron pills, but states she takes a multivitamin that her kidney doctor prescribed. Vitals are stable. Hemoglobin is normal. Patient will be discharged at this time. Patient advised to follow- up with [place] [place] [facility]. Return precautions given. - Differential Diagnosis GI bleed, anemia, malignancy Critical care attestation.: If time is entered above; I have spent that time in minutes in the direct care of this critically ill patient, excluding procedure time. ED Disposition Clinical Impression: Abnormal stool color Disposition: DC-01 TO HOME OR SELFCARE Is pt being admited?: No Condition: Stable Instructions: Gastrointestinal Bleeding, [id number], Abdominal Pain (ED) Referrals: PRIMARY CARE, [Primary Care Provider] - 3-5 Days [facility] [Provider Group] - [facility] Time of Disposition: 20:06
[2020-07-06 20:16] VITALS: BP 155/80
== END 2020-07-06 20:15 | disposition home or self-care (01) ==
LOC: ED 12:47
DX: R19.5 Other fecal abnormalities (principal); I10 Essential (primary) hypertension; E11.9 Type 2 diabetes mellitus without complications; Z79.899 Other long term (current) drug therapy
CPT/HCPCS: 36415; 80053; 82962; 83690; 85025; 85610; 85730; 99283